=== PATIENT | female | born 1950 | race African-American/Black ===

== ENCOUNTER 2020-04-02 10:27 | Inpatient (IN) | payer MEDICARE, OTHER ==
[~2020-04-02 10:27] MED LIST: ACYCLOVIR400 MG PO; CEFDINIR300 MG PO; NORCO 5-325 TA1 EACH PO; ZPAK PO
[2020-04-02 11:18] LABS: BASOPHIL 0.2 % (0-2); EOSINOPHIL 0 % (0-7); HCT 37.4 % (37.0-47.0); HGB 12.3 g/dl (12.5-16.0); LYMPHOCYTE 8.3 % (15-48); MCHC 32.9 g/dL (32.0-36.0); MCV 94.2 fL (78.0-100.0); MONOCYTE 15.1 % (0-12); NRBC 0; PLT 159 K/uL (150-400); RBC 3.97 M/uL (4.20-5.40); RDW 13.2 % (11.5-14.0); WBC 4.8 K/uL (4.0-10.5)
[2020-04-02 11:28] LABS: INR 1.15 (0.9-1.2)
[2020-04-02 11:29] LABS: D-DIMER 0.42 ug/mLFEU (0.00-0.41)
[2020-04-02 11:34] LABS: BILIRUBIN - TOTAL 0.5 mg/dL (0.2-1.0); BUN/CREAT RATIO (CALC) 17.4 RATIO; CREATININE 1.09 mg/dL (0.51-0.95); GLOBULIN (CALCULATION) 5.2 g/dL; MAGNESIUM 1.9 mg/dL (1.8-2.4); POTASSIUM 3.7 mmol/L (3.5-5.1); TOTAL PROTEIN 8.2 g/dL (6.4-8.2)
[2020-04-02 11:42] LABS: PRO-BNP 42 pg/mL (<125)
[2020-04-02] MEDS ORDERED: FOLIC ACID1 MG PO (14:20)
[2020-04-02 14:51] LABS: BILIRUBIN NEGATIVE (NEGATIVE); BLOOD TRACE-INTACT Ery/uL (NEGATIVE); CLARITY HAZY (CLEAR); COLOR YELLOW (YELLOW); GLUCOSE (U) NORMAL (NORMAL); LEUKOCYTES NEGATIVE Leu/uL (NEGATIVE); NITRITE POSITIVE (NEGATIVE); PROTEIN 2+ mg/dL (NEGATIVE); SPECIFIC GRAVITY >=1.030 (1.001-1.030); pH 5.5 (5.0-9.0)
[2020-04-02 15:05] LABS: BACTERIA 4+; URINARY WBC 20-50
--- NOTE | 2020-04-02 15:41 | NUR ---
S/W PATIENTS DAUGHTER VINNY VIA TELEPHONE, PASSWORD SET UP WITH CONSENT FROM PATIENT, PASSWORD "[phone]"
[2020-04-03 04:34] LABS: BASOPHIL 0 % (0-2); EOSINOPHIL 0 % (0-7); HCT 37.5 % (37.0-47.0); HGB 12.4 g/dl (12.5-16.0); LYMPHOCYTE 8.7 % (15-48); MCH 31.2 pg (25.0-31.0); MCHC 33.1 g/dL (32.0-36.0); MCV 94.5 fL (78.0-100.0); MONOCYTE 11.6 % (0-12); NEUTROPHIL 79.3 % (41-80); NRBC 0; PLT 160 K/uL (150-400); RBC 3.97 M/uL (4.20-5.40); RDW 13.3 % (11.5-14.0); WBC 2.8 K/uL (4.0-10.5)
[2020-04-03 05:24] LABS: ALBUMIN 2.8 g/dL (3.4-5.0); BILIRUBIN - TOTAL 0.4 mg/dL (0.2-1.0); C-REACTIVE PROTEIN 6.6 mg/dL (<=0.90); CREATININE 0.82 mg/dL (0.51-0.95); GLOBULIN (CALCULATION) 5.4 g/dL; POTASSIUM 4.2 mmol/L (3.5-5.1); TOTAL PROTEIN 8.2 g/dL (6.4-8.2)
--- NOTE | 2020-04-03 14:05 | NUR ---
0845: GARY LAZARO NOTIFIED THAT PT O2 SATS HAVE BEEN INTERMITTENTLY DROPPING INTO LOW 80'S, THEN COME BACK UP TO LOW 90'S. RESP RATE HIGH 20'S-HIGH 40'S. DENIES FEELING SOA, BUT APPEARS TACHYPNEIC & SHALLOW BREATHS. DESTINEE IN RESP THERAPY INCREASED HIGH FLOW NASAL CANNULA FLOW TO 39L & STILL ON 100% FIO2. STATES WE WILL CONTINUE TO WATCH PT SINCE NO DESATS ARE CONSECUTIVE & COMES BACK UP TO 90'S. ALL OTHER VSS.
[2020-04-04 05:24] LABS: BASOPHIL 0 % (0-2); EOSINOPHIL 0 % (0-7); HCT 37.6 % (37.0-47.0); HGB 12.5 g/dl (12.5-16.0); LYMPHOCYTE 7.5 % (15-48); MCH 31.3 pg (25.0-31.0); MCHC 33.2 g/dL (32.0-36.0); MCV 94.2 fL (78.0-100.0); MONOCYTE 12.6 % (0-12); MPV 10.1 fL (6.0-9.5); NEUTROPHIL 79.7 % (41-80); NRBC 0; PLT 202 K/uL (150-400); RBC 3.99 M/uL (4.20-5.40); RDW 13.5 % (11.5-14.0); WBC 4.8 K/uL (4.0-10.5)
[2020-04-04 05:42] LABS: ALBUMIN 2.7 g/dL (3.4-5.0); BILIRUBIN - TOTAL 0.3 mg/dL (0.2-1.0); CREATININE 0.76 mg/dL (0.51-0.95); GLOBULIN (CALCULATION) 5.2 g/dL; POTASSIUM 3.9 mmol/L (3.5-5.1); TOTAL PROTEIN 7.9 g/dL (6.4-8.2)
--- NOTE | 2020-04-04 08:57 | NUR ---
PATIENT CONTINOUSLY SATS 80-85% WITH SHORT SHALLOW BREATHS, RR 30'S. WITH CONTINUED COACHING PATIENTS SATS INCREASE TO 91% BUT DOES NOT SUSTAIN. AWARE OF FINDINGS, NO NEW ORDERS AT THIS TIME. CONTINUE TO MONITOR AND NOTIFY IF O2 SATS DROP LESS THAN 80% PER MD. NO ABG ORDERED FOR THIS AM
[2020-04-05 05:11] LABS: BASOPHIL 0.2 % (0-2); EOSINOPHIL 0 % (0-7); HCT 39.1 % (37.0-47.0); HGB 12.7 g/dl (12.5-16.0); LYMPHOCYTE 9.3 % (15-48); MCH 31.1 pg (25.0-31.0); MCHC 32.5 g/dL (32.0-36.0); MCV 95.6 fL (78.0-100.0); MONOCYTE 12.4 % (0-12); MPV 9.6 fL (6.0-9.5); NEUTROPHIL 77.9 % (41-80); NRBC 0; PLT 209 K/uL (150-400); RBC 4.09 M/uL (4.20-5.40); RDW 13.9 % (11.5-14.0); WBC 4.9 K/uL (4.0-10.5)
[2020-04-05 06:02] LABS: ALBUMIN 2.7 g/dL (3.4-5.0); BILIRUBIN - TOTAL 0.5 mg/dL (0.2-1.0); BUN/CREAT RATIO (CALC) 23.9 RATIO; C-REACTIVE PROTEIN 3.9 mg/dL (<=0.90); CREATININE 0.71 mg/dL (0.51-0.95); GLOBULIN (CALCULATION) 5.1 g/dL; POTASSIUM 3.8 mmol/L (3.5-5.1); TOTAL PROTEIN 7.8 g/dL (6.4-8.2)
[2020-04-06 04:24] LABS: BASOPHIL 0 % (0-2); EOSINOPHIL 0 % (0-7); HCT 38.1 % (37.0-47.0); HGB 12.5 g/dl (12.5-16.0); LYMPHOCYTE 6.7 % (15-48); MCH 31.3 pg (25.0-31.0); MCHC 32.8 g/dL (32.0-36.0); MCV 95.3 fL (78.0-100.0); MONOCYTE 7.2 % (0-12); MPV 10.1 fL (6.0-9.5); NEUTROPHIL 85.7 % (41-80); NRBC 0; PLT 219 K/uL (150-400); RDW 13.8 % (11.5-14.0); WBC 5.5 K/uL (4.0-10.5)
[2020-04-06 05:14] LABS: ALBUMIN 2.7 g/dL (3.4-5.0); BILIRUBIN - TOTAL 0.5 mg/dL (0.2-1.0); BUN/CREAT RATIO (CALC) 24.3 RATIO; C-REACTIVE PROTEIN 5.2 mg/dL (<=0.90); CREATININE 0.7 mg/dL (0.51-0.95); POTASSIUM 3.9 mmol/L (3.5-5.1); TOTAL PROTEIN 7.7 g/dL (6.4-8.2)
--- NOTE | 2020-04-07 01:18 | NUR ---
LATE ENTRY 2199 OXYGEN SATURATION MAINTAINING BETWEEN 75-77% ON HIGH FLOW VAPOBREATHER. PT DENIES DYSPNEA OR SOA AT REST. R MAINTAINING BETWEEN 25-35. PT STATES FEELS FINE . SATURATIONS DECREASING LOW 62% WITH ISB OR MOVEMENT IN BED. A [employer] NOTIFIED, ABG ORDERED. 2299 [employer] NOTIFIED THAT O2 STILL MAINTAING AT BETWEEN 76-77% HIGHEST SATURATION IS 84%. PT CONDITION UNCHANGED. ABG REPORTED TO [employer] BY RT. NO NEW ORDERS AT THIS TIME 12 [employer] EVALUATED PT AT BEDSIDE. WRITTEN ORDERS IN CHART. MAINTAIN O2 SAT ABOVE 76%. CURRENT O2 AT THIS TIME 80%.
[2020-04-08 04:10] LABS: BASOPHIL 0 % (0-2); EOSINOPHIL 0 % (0-7); HCT 39.5 % (37.0-47.0); HGB 12.9 g/dl (12.5-16.0); LYMPHOCYTE 4.7 % (15-48); MCH 30.9 pg (25.0-31.0); MCHC 32.7 g/dL (32.0-36.0); MCV 94.5 fL (78.0-100.0); MONOCYTE 10.9 % (0-12); MPV 9.8 fL (6.0-9.5); NEUTROPHIL 83.7 % (41-80); NRBC 0; PLT 260 K/uL (150-400); RBC 4.18 M/uL (4.20-5.40); WBC 5.7 K/uL (4.0-10.5)
[2020-04-08 04:58] LABS: BUN/CREAT RATIO (CALC) 27.6 RATIO; C-REACTIVE PROTEIN 8.5 mg/dL (<=0.90); CREATININE 0.76 mg/dL (0.51-0.95); POTASSIUM 3.7 mmol/L (3.5-5.1)
[2020-04-09 04:19] LABS: BASOPHIL 0.2 % (0-2); EOSINOPHIL 0.2 % (0-7); HCT 41.4 % (37.0-47.0); HGB 13.4 g/dl (12.5-16.0); LYMPHOCYTE 4.7 % (15-48); MCH 30.8 pg (25.0-31.0); MCHC 32.4 g/dL (32.0-36.0); MCV 95.2 fL (78.0-100.0); MONOCYTE 10.6 % (0-12); MPV 9.6 fL (6.0-9.5); NEUTROPHIL 83.4 % (41-80); NRBC 0; PLT 273 K/uL (150-400); RBC 4.35 M/uL (4.20-5.40); WBC 6.4 K/uL (4.0-10.5)
[2020-04-09 04:51] LABS: BUN/CREAT RATIO (CALC) 32.1 RATIO; C-REACTIVE PROTEIN 5.1 mg/dL (<=0.90); CREATININE 0.81 mg/dL (0.51-0.95)
--- NOTE | 2020-04-10 13:45 | NUR ---
1310 PATIENT INTUBATED WITH RN, RT AND CINDY PERSONNEL QUALITY ASSURANCE AUDITOR AT BEDSIDE. CINDY PUSHED SEDATION AND PARALYTIC. PATIENT TOLERATED, PLACED ON VENT WITH AC. ETT 21 AT LIP. 1330- PATIENT BEGAN TO PEAK PRESSURES ON VENT WITH INCREASED RESP RATE. MD AT BEDSIDE, REQUESTED FOR 100MCG PUSH OF FENTANYL AND INCREASE PROPOFOL AND FENT GTT. CINDY OPERATIONS GENERAL AGENT AT BEDSIDE TO PUSH ADDITIONAL PARALYTIC.
--- NOTE | 2020-04-10 14:50 | NUR ---
TOF 4/4 TWITCHES DIALED TO 10. BIS BASELINE 45. PARALYTIC STARTED AT 1MCG/KG/MIN ORDERED BY
--- NOTE | 2020-04-10 16:00 | NUR ---
BIS 34, 0/4 TWITCHES TOF DIALED TO 10.
--- NOTE | 2020-04-10 17:00 | NUR ---
BP 78/61. SEDATION AND ANALGESIA DECREASED PER . PARALYTIC OFF AT THIS TIME. LR BOLUS INITIATED. AT BEDSIDE TO PLACE PARKER AND CENTRAL LINE AT THIS TIME
[2020-04-11 04:54] LABS: BASOPHIL 0 % (0-2); EOSINOPHIL 0.4 % (0-7); HCT 37.3 % (37.0-47.0); HGB 11.7 g/dl (12.5-16.0); LYMPHOCYTE 4.5 % (15-48); MCHC 31.4 g/dL (32.0-36.0); MCV 98.7 fL (78.0-100.0); MONOCYTE 8.3 % (0-12); MPV 9.6 fL (6.0-9.5); NEUTROPHIL 86.3 % (41-80); NRBC 0; PLT 198 K/uL (150-400); RBC 3.78 M/uL (4.20-5.40); WBC 5.5 K/uL (4.0-10.5)
[2020-04-11 05:17] LABS: BUN/CREAT RATIO (CALC) 31.6 RATIO; C-REACTIVE PROTEIN 4.4 mg/dL (<=0.90); CREATININE 0.76 mg/dL (0.51-0.95); POTASSIUM 4.5 mmol/L (3.5-5.1)
--- NOTE | 2020-04-11 10:15 | NUR ---
MANUAL PRONING INTITIATED PER ORDERS, DR COATES CLOSE TO PATIENTS ROOM. CHECK LIST PERFORMED WITH THIS RN AND TRAVIS RN/NURSE HOLISTIC SPECIALIST. ALL LINES SECURES AND PRESSURE POINTS PROTECTED, ALL PRESSURE CAUSING DEVICES REMOVED. PATIENT PRONED WITH 4 RNS, 1 EMS INSTRUCTOR, FORMING PRESS OPERATOR AND RT AT BEDSIDE. POST PRONING SATS 99& BP 130/65, HR 88, RR 22. BIS 53, SEDATION INCREASED, SEE CHARTING. 0/4 TWITCHES ON TRAIN OF FOUR, NO CHANGES IN PARALYTIC GTT RATE AT THIS TIME. PEAK PRESSURE 36. EXPLAINED PROCEDURE TO PATIENT.
--- NOTE | 2020-04-12 02:31 | NUR ---
04/11/2020 2200- PT BEING PREPARED FOR MANUAL SUPINATION. ALL IV POLES/LINES EITHER MOVED TO HEAD OR FOOT OF BED. PARALYTIC AND SEDATION CONTINUES TO INFUSE. BIS MONITOR SHOWS RANGE 40-45. SCD'S, EKG, AND ALL UNNESSARY LINES REMOVED. ER MD OUTSIDE OF ROOM DURING SUPINATION INCASE OF EXTUBATION. RT X2, MARINE ELECTRICIAN APPRENTICE, RN X2, AND TRUCK ENGINE TECHNICIAN IN ROOM. MARINE ELECTRICIAN APPRENTICE TO READ CHECKLIST, ONE RT AT HEAD OF BED. X2 RN, TRUCK ENGINE TECHNICIAN, AND OTHER RT TO TURN PATIENT. ANALYTICAL LAB ANALYST ALSO OUTSIDE OF ROOM OBSERVING. 2215- PT MANUALLY TURNED TO SUPINE AT THIS TIME. TOLERATED WELL. CM SHOWS SR. HR 61. B/P 105/61. 100% O2 SAT. BIS 47. SEDATION STOPPED AFTER SUPINATION PER MD ORDERS. FULL SKIN ASSESSMENT COMPLETED. DRESSINGS REMOVED FROM BOY PROMINENCES. VENT P PRESSURES LOW 40'S. WILL MONITOR PRESSURE INCASE PARALYTIC NEEDED. 2245- VENT P PRESSURE NOTED TO BE 55. ANALYTICAL LAB ANALYST NOTIFIED AND ORDERED TO RESTART PARALYTIC. TOF BASELINE 4/4 TWITCHES ON L RADIAL. WILL CONTINUE TO MONITOR AND TITRATE PARALYTIC.
[2020-04-12 04:41] LABS: BASOPHIL 0 % (0-2); HCT 33.1 % (37.0-47.0); HGB 10.6 g/dl (12.5-16.0); MCH 31.1 pg (25.0-31.0); MCV 97.1 fL (78.0-100.0); MONOCYTE 5.6 % (0-12); MPV 9.3 fL (6.0-9.5); NEUTROPHIL 86.8 % (41-80); NRBC 0; PLT 154 K/uL (150-400); RBC 3.41 M/uL (4.20-5.40); RDW 13.5 % (11.5-14.0); WBC 4.8 K/uL (4.0-10.5)
[2020-04-12 05:00] LABS: BUN/CREAT RATIO (CALC) 24.6 RATIO; CREATININE 0.65 mg/dL (0.51-0.95); POTASSIUM 3.9 mmol/L (3.5-5.1)
--- NOTE | 2020-04-13 01:39 | NUR ---
NOTED FOR 04/12/20, 1624. PATIENT FLIPPED OUT OF PRONE POSTION WITH RT/RN/DR. LIU PRESENT WITHOUT INCIDENT. PATIENT REMAINS SEDATED AND PARALYZED. PATIENT TRACH TIES REMOVED FROM ET TUBE AND PLACED ET TUBE SANDERS ON PATIENT. PATIENT ET/ORAL SUCTIONED WELL AND ORAL CARE DONE BY RT. PATIENT HAS NOTED BRUSING AT BOTH CORNERS OF MOUTH FROM TRACH TIES AND LITLLE BLEEDING FROM RT CORNER OF MOUTH. CONTINUE TO MONITOR PATIENT
--- NOTE | 2020-04-13 13:09 | NUR ---
04/13/1215 MANUAL PRONING INITIATED PER DR. COATES'S ORDERS. CHECK LIST PERFORMED WITH SILVINO Chau RN. PRESSURE POINTS DEVICES REMOVED, LINES SECURED, PRESSURE POINT'S PROTECTED WITH AVEYLN DSG'S. DESTINEE MCKINNEY RT AT HEAD OF BED TO SECURE ET AND NG TUBE. AT CLOSE BY AT DOOR. 4 RN'S AND 1 SHEARING MACHINE TENDER PRESENT TO ASSIST WITH PRONING. POST PRONING V/S BP 105/61 HR 71, 97%,RR 28, BIS 34. TRAIN OF 4 0/4
--- NOTE | 2020-04-13 17:34 | NUR ---
1506 DESTINEE RT CALLED TO BEDSIDE, PT PEAK PRESSURE IN THE 60'S, BP 178/82 INLINE SUCTIONED AND SUCTION MOUTH W/O IMPROVEMENT. RALES AUSCULTATED THROUGHOUT. DESTINEE RT INLINE SUCTIONED PT WELL. DR. COATES ARRIVED TO PT ROOM, NOTIFIED OF ALL CHANGES RALES INCREASE IN PRESSURES, INCREASE TO VECURONIUM,INCREASE FENTANYL TO 100MCG. BIZ 42. TOF 0/4 VERBAL ORDER RECIEVED FROM DR. COATES TO INCREASE VERSED TO 12 . DIURETIC TO BE ORDERED. 1600- PEAK PRESSURES CONTIUE TO STAY IN 50'S AND 60'S. PT ONLY PULLING VOLUMES OF 200-300. DESTINEE MCKINNEY RT AT BEDSIDE. PT MANUALLY BAGGED AND INLINE SUCTIONED. PT PULLING APPROPRIATE VOLUMES. DR. COATES AT BEDSIDE DR. COATES TO SPEAK WITH DR. CARRANZA 6542 POSITION CHANGE WITH DESTINEE MCKINNEY RT.INLINED SUCTIONED A LARGE AMOUNT ON SECREATIONS. PEAK PRESSURES IMPROVED AT 38-40
--- NOTE | 2020-04-14 00:51 | NUR ---
PATIENT MANUALLY PRONED BACK, ORAL CARE AND ET/ORAL SUCTIONING DONE BY THIS RT ET TUBE STAYED SECURE THROUGHOUT
--- NOTE | 2020-04-14 01:39 | NUR ---
LATE ENTRY 0045 RT AT HEAD OF BED, SECOND RT ON RIGHT SIDE OF BED WITH NURSE, 2 NURSES ON INCLUDING THIS NURSE ON LEFT SIDE. 6TH NURSE AT FOOT OF BED. SUPINE CHECKLIST READ ALOUD AND CHECKED OFF. ALL LINES/TUBES SECURED AND WITH SLACK. ELECTRODES REMOVED FROM BACK. HANDS TUCKED UNDER HIPS, TUBE FEED STOPPED AND DISCONNECTED. HEAD TURNED TO RIGHT CHEEK FACING VENT. PT TURNED WITH ER MD AT BEDSIDE. PT TOLERATED WELL, NO SIGNS OF DISTRESS. THIS NURSE AND SECOND RN EVALUATED SKIN. FOAM DRESSINGS REMOVED, ECG APPLIED, TUBE FEED RESTARTED. PT REPOSITIONED IN BED.
[2020-04-14 05:25] LABS: BASOPHIL 0.2 % (0-2); EOSINOPHIL 0.2 % (0-7); HCT 34.9 % (37.0-47.0); HGB 11.1 g/dl (12.5-16.0); LYMPHOCYTE 4.2 % (15-48); MCH 30.3 pg (25.0-31.0); MCHC 31.8 g/dL (32.0-36.0); MCV 95.4 fL (78.0-100.0); MONOCYTE 5.4 % (0-12); MPV 9.9 fL (6.0-9.5); NEUTROPHIL 89.4 % (41-80); NRBC 0; PLT 185 K/uL (150-400); RBC 3.66 M/uL (4.20-5.40); RDW 13.4 % (11.5-14.0); WBC 6.7 K/uL (4.0-10.5)
[2020-04-14 05:48] LABS: ALBUMIN 1.8 g/dL (3.4-5.0); BILIRUBIN - TOTAL 0.4 mg/dL (0.2-1.0); BUN/CREAT RATIO (CALC) 27.6 RATIO; CREATININE 0.58 mg/dL (0.51-0.95); GLOBULIN (CALCULATION) 4.6 g/dL; POTASSIUM 3.6 mmol/L (3.5-5.1); TOTAL PROTEIN 6.4 g/dL (6.4-8.2)
[2020-04-15 06:49] LABS: BUN/CREAT RATIO (CALC) 33.8 RATIO; CREATININE 0.74 mg/dL (0.51-0.95); MAGNESIUM 1.8 mg/dL (1.8-2.4)
[2020-04-15 06:50] LABS: BASOPHIL 0.2 % (0-2); EOSINOPHIL 1.7 % (0-7); HCT 34.4 % (37.0-47.0); HGB 10.5 g/dl (12.5-16.0); LYMPHOCYTE 7.3 % (15-48); MCHC 30.5 g/dL (32.0-36.0); MCV 98.3 fL (78.0-100.0); MONOCYTE 8.3 % (0-12); MPV 9.9 fL (6.0-9.5); NRBC 0; PLT 178 K/uL (150-400); RDW 13.7 % (11.5-14.0)
--- NOTE | 2020-04-15 09:17 | NUR ---
PATIENT DESATED WHEN REPOSITIONED TO RIGHT SIDE, DOWN TO 85%. SUCTIONED TRACY RED FROTHY SPUTUM. TEMP 101.6 RECTALLY. AWARE AND AT BEDSIDE. RETURNED TO BACK. FIO2 INCREASED TO 100%, PEEP INCREASED TO 14, DEEP FRYER ASSEMBLER CONSULTED. RT NOTIFIED OF CHANGES.
[2020-04-15 09:54] LABS: BILIRUBIN NEGATIVE (NEGATIVE); BLOOD TRACE-LYSED Ery/uL (NEGATIVE); CLARITY CLEAR (CLEAR); COLOR YELLOW (YELLOW); GLUCOSE (U) NORMAL (NORMAL); LEUKOCYTES 2+ Leu/uL (NEGATIVE); NITRITE POSITIVE (NEGATIVE); PROTEIN NEGATIVE (NEGATIVE); SPECIFIC GRAVITY <=1.005 (1.001-1.030)
[2020-04-15 10:02] LABS: URINARY WBC RARE
[2020-04-15 10:03] LABS: BACTERIA 1+; SQUAMOUS EPITHELIAL CELLS RARE; URINARY RBC RARE
[2020-04-16 06:07] LABS: BASOPHIL 0.3 % (0-2); EOSINOPHIL 1.4 % (0-7); HCT 31.9 % (37.0-47.0); HGB 9.7 g/dl (12.5-16.0); LYMPHOCYTE 6.7 % (15-48); MCH 30.5 pg (25.0-31.0); MCHC 30.4 g/dL (32.0-36.0); MCV 100.3 fL (78.0-100.0); MONOCYTE 9.5 % (0-12); MPV 9.4 fL (6.0-9.5); NEUTROPHIL 81.7 % (41-80); NRBC 0; PLT 171 K/uL (150-400); RBC 3.18 M/uL (4.20-5.40); RDW 13.9 % (11.5-14.0); WBC 7.7 K/uL (4.0-10.5)
[2020-04-16 06:42] LABS: ALBUMIN 1.7 g/dL (3.4-5.0); BILIRUBIN - TOTAL 0.5 mg/dL (0.2-1.0); CREATININE 0.8 mg/dL (0.51-0.95); GLOBULIN (CALCULATION) 4.4 g/dL; POTASSIUM 3.6 mmol/L (3.5-5.1); TOTAL PROTEIN 6.1 g/dL (6.4-8.2)
[2020-04-16 06:58] LABS: PRO-BNP 39 pg/mL (<125)
[2020-04-17 05:33] LABS: BASOPHIL 0.3 % (0-2); EOSINOPHIL 1.8 % (0-7); HCT 31.4 % (37.0-47.0); HGB 9.3 g/dl (12.5-16.0); LYMPHOCYTE 8.7 % (15-48); MCH 30.7 pg (25.0-31.0); MCHC 29.6 g/dL (32.0-36.0); MCV 103.6 fL (78.0-100.0); MONOCYTE 11.5 % (0-12); MPV 9.9 fL (6.0-9.5); NEUTROPHIL 77.1 % (41-80); NRBC 0; PLT 174 K/uL (150-400); RBC 3.03 M/uL (4.20-5.40); RDW 14.3 % (11.5-14.0); WBC 6.8 K/uL (4.0-10.5)
[2020-04-17 06:30] LABS: BUN/CREAT RATIO (CALC) 22.5 RATIO; C-REACTIVE PROTEIN 17.8 mg/dL (<=0.90); CREATININE 0.8 mg/dL (0.51-0.95); POTASSIUM 4.1 mmol/L (3.5-5.1)
[2020-04-18 03:38] LABS: BASOPHIL 0.2 % (0-2); EOSINOPHIL 1.8 % (0-7); HCT 31.3 % (37.0-47.0); HGB 9.1 g/dl (12.5-16.0); LYMPHOCYTE 9.9 % (15-48); MCH 30.1 pg (25.0-31.0); MCHC 29.1 g/dL (32.0-36.0); MCV 103.6 fL (78.0-100.0); MONOCYTE 12.5 % (0-12); MPV 10.2 fL (6.0-9.5); NEUTROPHIL 75.3 % (41-80); NRBC 0; PLT 167 K/uL (150-400); RBC 3.02 M/uL (4.20-5.40); RDW 14.2 % (11.5-14.0); WBC 6.2 K/uL (4.0-10.5)
[2020-04-18 03:54] LABS: BUN/CREAT RATIO (CALC) 26.8 RATIO; CREATININE 0.82 mg/dL (0.51-0.95); POTASSIUM 4.4 mmol/L (3.5-5.1)
--- NOTE | 2020-04-18 11:30 | NUR ---
CRITICAL ABGS, RT AT BEDSIDE TO ADJUST VENT SETTINGS. PATIENT NOTED TO HAVE A SIGNIFICANT CHANGE IN BLOOD PRESSURE FROM SBP'S IN 160'S TO SBP 90'S. RELAYED ALL INFORMATION TO , ASKED IF HE WOULD LIKE RT TO NOTIFY (BINDING END STITCHER), DENIED AT THIS TIME.
--- NOTE | 2020-04-19 19:50 | NUR ---
PATIENT NEEDED VENT CIRUIT TUBING CHANGED, PATIENT HAS HIGH PIP PRESSURES 45-50s, PATIENT HAD THICK SECRETIONS IN TUBING. HR RUNNNING 88-94, TUBING, HME AND BALALRD CUTION CHANGEDM HR DROPPED TO 60 BUT DID COME BACK UP TO 88. RN NOTIFIED. PATIENT HAS COPOUS AMOUNTS OF TIN CLEAR SECRETIONS. ET TUBE AT 21 @ LIP
--- NOTE | 2020-04-20 01:51 | NUR ---
NOTIFIED VEHICLE COST ENGINEER OF BP 204/87 AT 0130 AFTER 5 MG IV APRESOLINE GIVEN. LOPRESSOR ORDERED 5MG. WILL CONTINUE TO MONITOR.
[2020-04-20 04:29] LABS: BASOPHIL 0.1 % (0-2); EOSINOPHIL 0 % (0-7); HCT 35.5 % (37.0-47.0); HGB 10.6 g/dl (12.5-16.0); LYMPHOCYTE 9.4 % (15-48); MCH 30.5 pg (25.0-31.0); MCHC 29.9 g/dL (32.0-36.0); MONOCYTE 11.6 % (0-12); MPV 9.8 fL (6.0-9.5); NEUTROPHIL 78.5 % (41-80); NRBC 0; PLT 253 K/uL (150-400); RBC 3.48 M/uL (4.20-5.40); RDW 13.8 % (11.5-14.0); WBC 6.9 K/uL (4.0-10.5)
[2020-04-20 04:45] LABS: ALBUMIN 2.3 g/dL (3.4-5.0); BILIRUBIN - TOTAL 0.2 mg/dL (0.2-1.0); BUN/CREAT RATIO (CALC) 60.7 RATIO; C-REACTIVE PROTEIN 4.8 mg/dL (<=0.90); CREATININE 0.61 mg/dL (0.51-0.95); GLOBULIN (CALCULATION) 5.7 g/dL; POTASSIUM 4.9 mmol/L (3.5-5.1)
[2020-04-20 04:54] LABS: MAGNESIUM 2.5 mg/dL (1.8-2.4)
[2020-04-21 05:12] LABS: BASOPHIL 0.3 % (0-2); EOSINOPHIL 0.3 % (0-7); HCT 35.6 % (37.0-47.0); HGB 10.5 g/dl (12.5-16.0); LYMPHOCYTE 9.1 % (15-48); MCH 30.2 pg (25.0-31.0); MCHC 29.5 g/dL (32.0-36.0); MCV 102.3 fL (78.0-100.0); MONOCYTE 12.8 % (0-12); MPV 9.9 fL (6.0-9.5); NEUTROPHIL 76.9 % (41-80); NRBC 0; PLT 280 K/uL (150-400); RBC 3.48 M/uL (4.20-5.40); RDW 13.9 % (11.5-14.0)
[2020-04-21 05:40] LABS: BUN/CREAT RATIO (CALC) 70.5 RATIO; CREATININE 0.61 mg/dL (0.51-0.95); POTASSIUM 4.7 mmol/L (3.5-5.1)
[2020-04-22 10:27] LABS: HCT 35.2 % (37.0-47.0); HGB 10.6 g/dl (12.5-16.0); MCH 30.6 pg (25.0-31.0); MCHC 30.1 g/dL (32.0-36.0); MCV 101.7 fL (78.0-100.0); MPV 10.5 fL (6.0-9.5); RBC 3.46 M/uL (4.20-5.40); RDW 14.1 % (11.5-14.0)
[2020-04-22 10:42] LABS: BUN/CREAT RATIO (CALC) 84.1 RATIO; CREATININE 0.63 mg/dL (0.51-0.95); POTASSIUM 4.8 mmol/L (3.5-5.1)
[2020-04-23 05:44] LABS: BASOPHIL 0.2 % (0-2); EOSINOPHIL 1.1 % (0-7); HCT 38.8 % (37.0-47.0); HGB 11.5 g/dl (12.5-16.0); LYMPHOCYTE 12.4 % (15-48); MCH 30.5 pg (25.0-31.0); MCHC 29.6 g/dL (32.0-36.0); MCV 102.9 fL (78.0-100.0); MONOCYTE 14.6 % (0-12); MPV 10.2 fL (6.0-9.5); NEUTROPHIL 70.6 % (41-80); NRBC 0.2; PLT 382 K/uL (150-400); RBC 3.77 M/uL (4.20-5.40); RDW 14.1 % (11.5-14.0); WBC 8.4 K/uL (4.0-10.5)
[2020-04-23 06:04] LABS: BUN/CREAT RATIO (CALC) 82.5 RATIO; CREATININE 0.57 mg/dL (0.51-0.95); MAGNESIUM 2.8 mg/dL (1.8-2.4); POTASSIUM 4.8 mmol/L (3.5-5.1)
--- NOTE | 2020-04-23 06:49 | NUR ---
PULLED A LINE AT 2009 PER AERODYNAMICIST ORDERS. A LINE NOT PROVIDING WAVEFORM, ABP IS NOT ACCURATE WITH REGULAR BP, NO BLOOD RETURN FROM PT. PORT. CALL CENTER DIRECTOR VERIFIED. ER,RN
--- NOTE | 2020-04-24 02:13 | NUR ---
PT. STARTED ON PRESEDEX AROUND 1700 ON 04/23/20. STARTED AT 0.2MCG/KG/HR. AT 2247 WAS TITRATED TO 0.4MCG/KG/HR PER HOSPITALIST ORDER. AT 0057 ON 04/24/20 WAS TITRATED TO 0.5MCG/KG/HR/10.2ML/HR.
--- NOTE | 2020-04-24 14:00 | NUR ---
PRECEDEX/SEDATION TITRATION: 1045: PRECEDEX DECREASED FROM 0.5 MCG/KG/HR TO 0.4 MCG/KG/HR = 8.1 ML/HR SINCE BP RUNNING LOW & MODERATE TO DEEP SEDATION AT THIS TIME. 1220: INCREASED PRECEDEX TO 0.5 MCG/KG/HR = 10.2 ML/HR PT MOVING HEAD & MOUTH, TACHYPNEA, BP ELEVATED 170-180'S/80-90'S. 1310: INCREASED PRECEDEX TO 0.6 MCG/KG/HR = 12.2 ML/HR FOR SAME ABOVE. 1325: INCREASED PRECEDEX TO 0.7 MCG/KG/HR = 14.2 ML/HR FOR BP STILL ELEVATED, MOVING HEAD SIDE TO SIDE & MOUTH/GAGGING ON ETT, TACHYPNEA. SEE FENTANYL TITRATION FOR ALSO ELEVATED. VERSED GTT RUNNING AT 10 MG/HR = 10 ML/HR ALSO. AFTER SEDATION INCREASE PT LYING STILL/CALM IN BED, BP DOWN TO 140'S/80'S RR BACK TO VENT RATE OF 28, ALL OTHER VSS. WILL CONTINUE TO MONITOR CLOSELY.
--- NOTE | 2020-04-24 15:03 | NUR ---
VENT SETTINGS: DR. COATES SPOKE W/ ADMISSIONS MANAGER RN DR. BERMAN & MD TURNED TV TO 570, PEEP UP TO 12, & TURNED FIO2 DOWN TO 90%.
--- NOTE | 2020-04-24 17:14 | NUR ---
PRECEDEX DECREASED TO 0.6 MCG/KG/HR = 12.2 ML/HR AT THIS TIME FOR MODERATE TO DEEP SEDATION & BP SLIGHTLY LOW 90'S/50'S, MAP STAYING >65.
--- NOTE | 2020-04-24 18:51 | NUR ---
PRECEDEX TURNED DOWN TO 0.5 MCG/KG/HR = 10.2 ML/HR AT THIS TIME DUE TO MODERATE TO DEEP SEDATION, BP 90'S/50'S.
[2020-04-25 05:42] LABS: BASOPHIL 0.2 % (0-2); EOSINOPHIL 2.6 % (0-7); HCT 32.7 % (37.0-47.0); HGB 9.5 g/dl (12.5-16.0); LYMPHOCYTE 16.2 % (15-48); MCH 30.3 pg (25.0-31.0); MCHC 29.1 g/dL (32.0-36.0); MCV 104.1 fL (78.0-100.0); MONOCYTE 10.6 % (0-12); MPV 10.4 fL (6.0-9.5); NRBC 0.3; PLT 303 K/uL (150-400); RBC 3.14 M/uL (4.20-5.40); RDW 14.2 % (11.5-14.0); WBC 6.3 K/uL (4.0-10.5)
[2020-04-25 06:24] LABS: ALBUMIN 2.3 g/dL (3.4-5.0); BILIRUBIN - TOTAL 0.3 mg/dL (0.2-1.0); BUN/CREAT RATIO (CALC) 82.7 RATIO; C-REACTIVE PROTEIN 2.8 mg/dL (<=0.90); CREATININE 0.52 mg/dL (0.51-0.95); GLOBULIN (CALCULATION) 4.5 g/dL; POTASSIUM 4.5 mmol/L (3.5-5.1); TOTAL PROTEIN 6.8 g/dL (6.4-8.2)
[2020-04-26 09:26] LABS: BUN/CREAT RATIO (CALC) 67.3 RATIO; CREATININE 0.49 mg/dL (0.51-0.95)
[2020-04-27 04:54] LABS: BUN/CREAT RATIO (CALC) 67.5 RATIO; CREATININE 0.4 mg/dL (0.51-0.95); POTASSIUM 4.8 mmol/L (3.5-5.1)
[2020-04-28 04:27] LABS: BASOPHIL 0.1 % (0-2); EOSINOPHIL 1.9 % (0-7); HCT 29.9 % (37.0-47.0); HGB 8.8 g/dl (12.5-16.0); LYMPHOCYTE 10.9 % (15-48); MCH 29.5 pg (25.0-31.0); MCHC 29.4 g/dL (32.0-36.0); MCV 100.3 fL (78.0-100.0); MPV 10.1 fL (6.0-9.5); NRBC 0.3; PLT 316 K/uL (150-400); RBC 2.98 M/uL (4.20-5.40); RDW 13.8 % (11.5-14.0); WBC 6.7 K/uL (4.0-10.5)
[2020-04-28 04:43] LABS: BUN/CREAT RATIO (CALC) 57.1 RATIO; C-REACTIVE PROTEIN 3.9 mg/dL (<=0.90); CREATININE 0.35 mg/dL (0.51-0.95); POTASSIUM 4.7 mmol/L (3.5-5.1)
[2020-04-29 04:59] LABS: BUN/CREAT RATIO (CALC) 52.6 RATIO; CREATININE 0.38 mg/dL (0.51-0.95); POTASSIUM 4.7 mmol/L (3.5-5.1)
[2020-04-30 04:28] LABS: BASOPHIL 0.3 % (0-2); EOSINOPHIL 0.6 % (0-7); HCT 30.5 % (37.0-47.0); LYMPHOCYTE 10.9 % (15-48); MCH 30.1 pg (25.0-31.0); MCHC 29.5 g/dL (32.0-36.0); MONOCYTE 11.5 % (0-12); MPV 10.3 fL (6.0-9.5); NEUTROPHIL 74.4 % (41-80); NRBC 1.8; PLT 389 K/uL (150-400); RBC 2.99 M/uL (4.20-5.40); RDW 14.5 % (11.5-14.0); WBC 7.9 K/uL (4.0-10.5)
[2020-04-30 04:45] LABS: BUN/CREAT RATIO (CALC) 64.7 RATIO; CREATININE 0.34 mg/dL (0.51-0.95); POTASSIUM 4.7 mmol/L (3.5-5.1)
[2020-05-01 04:57] LABS: BASOPHIL 0.3 % (0-2); EOSINOPHIL 0.9 % (0-7); HCT 30.2 % (37.0-47.0); HGB 8.8 g/dl (12.5-16.0); LYMPHOCYTE 13.4 % (15-48); MCH 29.7 pg (25.0-31.0); MCHC 29.1 g/dL (32.0-36.0); MONOCYTE 11.2 % (0-12); MPV 10.1 fL (6.0-9.5); NEUTROPHIL 71.9 % (41-80); NRBC 2.7; PLT 395 K/uL (150-400); RBC 2.96 M/uL (4.20-5.40); RDW 14.8 % (11.5-14.0); WBC 8.9 K/uL (4.0-10.5)
[2020-05-01 05:18] LABS: ALBUMIN 2.1 g/dL (3.4-5.0); BILIRUBIN - TOTAL 0.3 mg/dL (0.2-1.0); BUN/CREAT RATIO (CALC) 55.3 RATIO; CREATININE 0.38 mg/dL (0.51-0.95); GLOBULIN (CALCULATION) 4.4 g/dL; POTASSIUM 4.6 mmol/L (3.5-5.1); TOTAL PROTEIN 6.5 g/dL (6.4-8.2)
--- NOTE | 2020-05-01 17:43 | NUR ---
VENTILATOR ALARM NOTE: AFTER TURNING/REPOSITION PT & COMPLETING 1600 ASSESSMENT, O2 SATS 94-96%, ALL VSS, NO DISTRESS NOTED. BRIEFLY AFTER EXITING ROOM VENTILATOR BEGAN TO ALARM WITH HIGH PEAK PRESSURES >60, HAD BEEN 40'S MOST OF THE DAY PRIOR. RESP THERAPIST & THIS RN AT BEDSIDE, O2 SATS REMAINED 95% OR >, ALL OTHER VSS, RR 28 PER VENT SETTINGS. RESP THERAPIST DESTINEE MCKINNEY SUCTIONED MUCOUS PLUG WITH IN-LINE SUCTION, HR DROPPED TO 30, THEN IMMEDIATELY RETURNED TO 70'S ONCE SUCTION COMPLETE. ALL VITALS STABLE. INHALERS GIVEN PER RESP THERAPY. DR. VEGA NOTIFIED, ALSO NOTIFIED OF ETT 20 CM AT LIP ALL THIS SHIFT. CLOUD AUTOMATION TESTER REPORTED BETWEEN 20-21 AT LIP & THIS DOCUMENTED 21 AT LIP YESTERDAY. LUNG SOUNDS NOTED TO BE EQUAL THROUGHOUT PER THIS RN & RESP THERAPIST. SUCTIONED PERFORMED ONCE MORE PEAK PRESSURE RETURNED TO 50'S. ALL VITALS REMAINED STABLE WITH THIS SUCTION. PEAK PRESSURE DROPPED TO HIGH 40'S BRIEFLY THEN RETURNED TO MID-HIGH 50'S. CXR ORDRED PER DR. VEGA. WILL MONITOR CLOSELY.
--- NOTE | 2020-05-01 19:51 | NUR ---
RT AT BEDSIDE, PATIENT HAD AUDIBLE SECRETIONS IN ET TUBE, THIN GOLDEN SECRETIONS SUCTIONED FROM ET TUBE. PEAK PRESSURES AROUND 55. UPON SUCTIONING PATIENT HAD INCREASED PEAK PRESSURES TO 60, HR DROPPED TO 37 SAT 90%. RN ARRIVING AT BEDSIDE, AT DESK. AMBU BAG WITH FILTER READY AT THE BED IF NEEDED. HR IMPROVED TO 88. PEAK PRESSURES MAINTAINING AT 56-58. SAT 95%. RN ADJUSTING MEDICATIONS. CONTINUE TO MONITOR
--- NOTE | 2020-05-01 21:28 | NUR ---
BACK CHARTING DUE TO RT WORKLOAD. RT SPOKE WITH DR. FLORENCE VIA TIGER TEXT 2022 PATIENT REMAINED AT PEAK PRESSURES >60 WELL AFTER INITIAL NOTE MADE PATIENT DID NOT NEED SUCTIONED PER AUSCULTATION, RT ADJUSTED FLOW AND SENSITIVITY AND UNABLE TO GET PATIENT TO VENTILATE WELL WITH LOW PEAK PRESSURES. CUFF PRESSURE CHECKED, ANNA LOMAS AT BEDSIDE MAINTAINING DRIPS. INIATED TRIAL PC MODE AND PATIENT WOULD NOT VENTILATE. RT ADJUST VT TO 550 AND PEAK PRESSURES HAVE IMPROVED SINCE MAINTAINING AROUND 48-50. DR. FLORENCE PAPER TESTING SUPERVISOR WAS NOTIFIED. OK WITH CHANGES MADE BY THIS RT AND OBTAIN ABG. ABG NOTED MORE ACIDOTIC THAN THIS AM, BUT PO2 HAD IMPROVED FROM [address] FLORENCE NOTIFIED. VT NOT ADJUSTED AT THIS TIME TO MAINTAIN LOWER PEAK PRESSURES TO NOT FURTHER INDUCE LUNG INJURY. RR INCREASED TO 30, VT TO REMAIN AT 550 AND FIO2 DECREAED TO 60% FROM 80% SAT CURRENTLY 94%, REPEAT ABG IN 30 MINUTES. FLOW SET AT 70 WAS ADJUSTED FROM 76 PRIOR. SPOKE WITH VIA TELEPHONE AT AROUND 2124. CONTINUE TO MONITOR PATIENT HAS CLEAR BREATH SOUNDS IN UPPER LOBES, DIMINISHED IN BASES
--- NOTE | 2020-05-01 22:54 | NUR ---
DR. FERRERA CONSULTED PER THERAPIST FOR RECOMENDATION TEXT SENT 1901
--- NOTE | 2020-05-01 22:56 | NUR ---
ABG IMPROVED WITH VENT CHANGES VT 550/RR30/60%/+12 FROM PRIOR ABG AT 2100, PATIENT HAS MAINTAINED LOWER IMPROVED PEAK PRESSURES 46/47. ABG 7.29/69.8 CO2/64.4/P02/ SAT 87.8%, MONITOR SAT 91% VT INCREASED TO 580, FIO2 65%, DR. FLORENCE AWARE. PEAK PRESSURES AT 50 THIS RT WANTS TO MAINTAIN LOWER PEAK PRESSURES <55 TO PROTECT FROM LUNG INJURY AND PNEUMOTHORAX. DR. FERRERA ALSO CONTACTED FOR SECOND OPINION CONSULT TOLD BY RN MAISHA LAZARO CONTACTED BEFORE ON PATIENT. CONTINUE TO MONITOR AT THIS TIME
--- NOTE | 2020-05-02 02:38 | NUR ---
PATIENT VENT ALARM STARTED ALARMING AROUND 0200 WITH PEAK PRESSURES AT 60. UPON AUSCULATATION PATIENT DOES NOT SOUND WET, RHONCI, ETC. PATIENT IS FULLY SEDATED AND ON PARALYTIC. RN ABEBE AT BEDSIDE. PATIENT TAKEN OFF VENT AND BAGGED BY RT IN CASE OF MUCUS PLUGGING. PATIENT WAS NOT HARD TO BAG, DID NOT HEAR ANY SECRETIONS IN TUBE AND HR MAINTAINED AROUND 60. PATIENT CONNECTED BACK TO VENT AND CONTINUED TO PEAK PRESSURE. PATIENT SUCTIONED X2 AND PATIENT NENO TO 30s ON SECOND ATTEMPT. RN AT BEDSIDE. PATIENT HR DID IMPROVE. AND NOW BACK UP TO 66. RT HAS NEVER HEARD BACK FROM DR. SETH. ANOTHER TEXT PER NUMBER IN RT DEPARTMENT FOR SUGGESTIONS FROM PULMONOLGIST. RT TRIED PATIENT ON PRESSURE CONTROL WITHOUT ANY SUCCESS OF VENTILATING PATIENT. PATIENT REMAINS ON VENT VT 580/RR 30/65%/+12, PEAK PRESSURE 58 HR 65 SAT 93% PER MONITOR.
--- NOTE | 2020-05-02 06:57 | NUR ---
SPOKE WITH DR. FERRERA REGUARDING PATIENT AT 0623 EXPLAINED PATIENT STATUS THROUGHOUT THE EVENING. ABG BETTER THIS AM. PH 7.464/ CO2 50.1/ PO2 48.6/ HCO3 36.0/ 86.6% DR. FERRERA OK WITH CHANGES, INCREASE FIO2 75%
[2020-05-02 07:55] LABS: BASOPHIL 0.1 % (0-2); EOSINOPHIL 1.2 % (0-7); HCT 30.6 % (37.0-47.0); LYMPHOCYTE 13.6 % (15-48); MCH 29.8 pg (25.0-31.0); MCHC 29.4 g/dL (32.0-36.0); MCV 101.3 fL (78.0-100.0); MONOCYTE 11.7 % (0-12); MPV 9.3 fL (6.0-9.5); NEUTROPHIL 71.5 % (41-80); NRBC 1.2; PLT 363 K/uL (150-400); RBC 3.02 M/uL (4.20-5.40); RDW 15.4 % (11.5-14.0); WBC 9.2 K/uL (4.0-10.5)
[2020-05-02 08:15] LABS: BUN/CREAT RATIO (CALC) 54.8 RATIO; CREATININE 0.31 mg/dL (0.51-0.95)
--- NOTE | 2020-05-02 12:25 | NUR ---
1100 AT BEDSIDE WITH EVELIN FORREST LANEA RN AT BEDSIDE TO PLACE TRACH. PROCEDURE WENT WELL.
[2020-05-03 05:00] LABS: BASOPHIL 0.1 % (0-2); EOSINOPHIL 1.3 % (0-7); HCT 30.8 % (37.0-47.0); HGB 9.2 g/dl (12.5-16.0); LYMPHOCYTE 16.1 % (15-48); MCH 30.3 pg (25.0-31.0); MCHC 29.9 g/dL (32.0-36.0); MCV 101.3 fL (78.0-100.0); MONOCYTE 13.5 % (0-12); MPV 9.3 fL (6.0-9.5); NEUTROPHIL 67.9 % (41-80); PLT 328 K/uL (150-400); RBC 3.04 M/uL (4.20-5.40); RDW 15.9 % (11.5-14.0); WBC 7.2 K/uL (4.0-10.5)
[2020-05-03 05:17] LABS: BUN/CREAT RATIO (CALC) 60.6 RATIO; CREATININE 0.33 mg/dL (0.51-0.95)
--- NOTE | 2020-05-03 11:30 | NUR ---
O2 SATS DOWN TO 88-89%, BP ELEVATED 180'S SYSTOLIC, ALL OTHER VSS. BIS 38, TOF 2/4. THIS RN & RESP THERAPY IN-LINE SUCTIONED TRACH & GOT MODERATE AMOUNT CLEAR/GOLDEN/BLOODY SPUTUM. PEAK PRESSURE HIGH 40'S ON VENT. DR. VEGA NOTIFIED/AWARE. AFTER SUCTIONED/REPOSITIONED SATS REMAIN LOW AT 86%. MD ORDERED TO INCREASE FIO2 TO 80% SATS INCREASED TO 95-97%. TOLERATING VENT WELL AT THIS TIME. MD STATES SOMEWHAT BLOODY SPUTUM IS TO BE EXPECTED WITH FRESH TRACH. WILL CONT. TO MONITOR CLOSELY.
--- NOTE | 2020-05-03 19:39 | NUR ---
PATIENT HAS #8 MATHEW DE JESUS #8 TRACH AT BEDSIDE OBTURATOR NOT FOUND AT BEDSIDE, ASKED RN ABOUT AMBU BAG AT BEDSIDE CONTINUE TO MONITOR
[2020-05-04 04:13] LABS: BASOPHIL 0.1 % (0-2); EOSINOPHIL 1.3 % (0-7); HGB 9.4 g/dl (12.5-16.0); LYMPHOCYTE 12.7 % (15-48); MCH 30.1 pg (25.0-31.0); MCHC 29.4 g/dL (32.0-36.0); MCV 102.6 fL (78.0-100.0); MONOCYTE 11.4 % (0-12); MPV 9.8 fL (6.0-9.5); NEUTROPHIL 73.8 % (41-80); NRBC 0; PLT 357 K/uL (150-400); RBC 3.12 M/uL (4.20-5.40); RDW 15.9 % (11.5-14.0); WBC 6.9 K/uL (4.0-10.5)
[2020-05-04 04:38] LABS: BUN/CREAT RATIO (CALC) 72.4 RATIO; CREATININE 0.29 mg/dL (0.51-0.95); POTASSIUM 4.3 mmol/L (3.5-5.1)
[2020-05-05 04:01] LABS: BASOPHIL 0 % (0-2); EOSINOPHIL 1.8 % (0-7); HCT 32.2 % (37.0-47.0); HGB 9.3 g/dl (12.5-16.0); LYMPHOCYTE 13.4 % (15-48); MCH 29.8 pg (25.0-31.0); MCHC 28.9 g/dL (32.0-36.0); MCV 103.2 fL (78.0-100.0); MONOCYTE 13.9 % (0-12); MPV 9.4 fL (6.0-9.5); NEUTROPHIL 70.4 % (41-80); NRBC 0.3; PLT 317 K/uL (150-400); RBC 3.12 M/uL (4.20-5.40); RDW 15.8 % (11.5-14.0); WBC 7.7 K/uL (4.0-10.5)
[2020-05-05 04:15] LABS: BUN/CREAT RATIO (CALC) 73.3 RATIO; CREATININE 0.3 mg/dL (0.51-0.95); POTASSIUM 4.1 mmol/L (3.5-5.1)
[2020-05-06 04:35] LABS: BASOPHIL 0.1 % (0-2); EOSINOPHIL 1.5 % (0-7); HCT 32.7 % (37.0-47.0); HGB 9.5 g/dl (12.5-16.0); LYMPHOCYTE 13.5 % (15-48); MCH 29.4 pg (25.0-31.0); MCHC 29.1 g/dL (32.0-36.0); MCV 101.2 fL (78.0-100.0); MPV 9.9 fL (6.0-9.5); NEUTROPHIL 71.4 % (41-80); NRBC 0; PLT 312 K/uL (150-400); RBC 3.23 M/uL (4.20-5.40); RDW 15.7 % (11.5-14.0); WBC 7.3 K/uL (4.0-10.5)
[2020-05-06 05:31] LABS: BUN/CREAT RATIO (CALC) 86.2 RATIO; CREATININE 0.29 mg/dL (0.51-0.95); POTASSIUM 3.8 mmol/L (3.5-5.1)
[2020-05-07 05:46] LABS: BASOPHIL 0.1 % (0-2); EOSINOPHIL 1.7 % (0-7); HCT 32.3 % (37.0-47.0); HGB 9.5 g/dl (12.5-16.0); LYMPHOCYTE 11.3 % (15-48); MCH 29.8 pg (25.0-31.0); MCHC 29.4 g/dL (32.0-36.0); MCV 101.3 fL (78.0-100.0); MONOCYTE 11.1 % (0-12); MPV 9.8 fL (6.0-9.5); NEUTROPHIL 75.5 % (41-80); NRBC 0; PLT 284 K/uL (150-400); RBC 3.19 M/uL (4.20-5.40); RDW 15.6 % (11.5-14.0); WBC 9.4 K/uL (4.0-10.5)
[2020-05-07 05:54] LABS: ALBUMIN 2.4 g/dL (3.4-5.0); BILIRUBIN - TOTAL 0.4 mg/dL (0.2-1.0); BUN/CREAT RATIO (CALC) 90.6 RATIO; CREATININE 0.32 mg/dL (0.51-0.95); GLOBULIN (CALCULATION) 4.5 g/dL; POTASSIUM 3.4 mmol/L (3.5-5.1); TOTAL PROTEIN 6.9 g/dL (6.4-8.2)
--- NOTE | 2020-05-07 06:05 | NUR ---
PT. REPOSITIONED Q2HR FROM LEFT TO BACK. PT. UNABLE TO TOLERATE BEING ON THE RIGHT SIDE DURING DAY SHIFT. PT. WAS SOMETIMES LEFT ON SAME SIDE BUT WAS REPOSITIONED IN BED AND WEIGHT WAS DISPERSED, JUST DEPENDED ON HER TOLERATION BASED ON VITAL SIGNS AND VENT TOLERATION.
--- NOTE | 2020-05-07 17:04 | NUR ---
LATE ENTRY 05/04/2020 REFERRAL SENT TO TARIK AT [facility] [phone] EXT. [phone].
--- NOTE | 2020-05-08 10:39 | NUR ---
FAXED UPDATED INFORMATION TO TARIK AT CONTINU[facility] AT [facility].
[2020-05-09 08:56] LABS: BASOPHIL 0.2 % (0-2); EOSINOPHIL 2.9 % (0-7); HCT 31.7 % (37.0-47.0); HGB 9.1 g/dl (12.5-16.0); LYMPHOCYTE 11.9 % (15-48); MCH 29.4 pg (25.0-31.0); MCHC 28.7 g/dL (32.0-36.0); MCV 102.3 fL (78.0-100.0); MONOCYTE 10.7 % (0-12); MPV 9.8 fL (6.0-9.5); NEUTROPHIL 73.9 % (41-80); NRBC 0; PLT 250 K/uL (150-400); RDW 15.9 % (11.5-14.0); WBC 8.2 K/uL (4.0-10.5)
[2020-05-09 09:11] LABS: BUN/CREAT RATIO (CALC) 85.3 RATIO; C-REACTIVE PROTEIN 5.2 mg/dL (<=0.90); CREATININE 0.34 mg/dL (0.51-0.95); POTASSIUM 3.1 mmol/L (3.5-5.1)
--- NOTE | 2020-05-09 19:18 | NUR ---
1740- PT WAS PREPARED FOR PRONING WITH HEAD TO TOE ASSESSMENT WITH ALY RN. PARALYTIC NOT ORDERED. FENTANYL AT 275MCG, VERSED 18ML INFUSING. FOAM DRESSING APPLIED DIRECTED BY PROTOCOL CHECKLIST. ALL LINES SECURED. LEAH RT AT HEAD OF BED WITH BE LU MARY JO, CHRISTY RT AT BEDSIDE. PT UNABLE TO TOLERATE INITIAL TURN. VECURINIUM PUSH GIVEN ORDERED, FENTANYL INCREASED TO 300MCG, VERSED INCREASED TO 20ML. PT BIZ AT 40 , ABLE TO PRONE PT W/O DIFFICULTY.
[2020-05-10 04:33] LABS: CREATININE 0.3 mg/dL (0.51-0.95); POTASSIUM 3.7 mmol/L (3.5-5.1)
--- NOTE | 2020-05-10 12:20 | NUR ---
PT RETURNED TO SUPINE POSITION PER DR. COATES ORDER AFTER 18 HOURS IN PRONE POSITION. RESP THERAPIST, 5 RNS INCLUDING HARNESSMAKER APPRENTICE PRESENT IN ROOM. DR. PRATT PRESENT OUTSIDE ROOM. SKIN ASSESSMENT PERFORMED ON POSTERIOR/ANTERIOR BODY W/ ALL INTACT. FOLLOWED PROTOCOL CHECKLIST FOR PLACING BACK IN SUPINE POSITION. PT TOLERATED WELL. ALL SUPPORT LINES SECURED, NO COMPLICATIONS.
--- NOTE | 2020-05-10 13:37 | NUR ---
05/10/20 Dr. Gomez reports, Dr. Pompa will accept Ms. Miranda at [facility]. Per Dr. Gomez's request, Barbra Altman, digital content coordinator was contacted ([phone]). Ms. Altman reports: [facility] and [facility] have waiting list and [facility] is not accepting COVID patients. Ms. Altman was requested to speak with Dr. Pompa. She said she would have the CREW PERSON to call Dr. Pompa. A report was given to BRITANY and Dr. Gomez.
--- NOTE | 2020-05-10 15:00 | NUR ---
RIJ CENTRAL LINE REMOVED PER SHILO CISSEL, PRESSURE HELD, GAUZE DRSG APPLIED. TIP INTACT. SHILO RN ALSO PLACED PERIPHERAL IV #20 RFA IN PREPARATION FOR PICC LINE PLACEMENT. SEE PICC NOTE.
--- NOTE | 2020-05-10 17:15 | NUR ---
PICC LINE CONSULT PLACED. MYSELF AND SHERRELL SPENCER RN WENT TO ROOM TO START PICC LINE. USING ULTRASOUND I VISUALIZED THE RIGHT UPPER BASILIC VEIN. USING STERILE PROCEDURE, I CLEANED THE AREA AND PREPPED FOR PICC LINE INSERTION. USING ULTRASOUND I THEN VISUALIZED THE VEIN AND CHOSE THE BEST INSERTION SITE. I NUMBED THE AREA WITH 1ML OF SQ LIDOCAINE. I THEN INSERTED THE 21G NEEDLE, ONCE BLOOD RETURN WAS PRESENT, I ADVANCED THE GUIDE WIRE THROUGH THE NEEDLE OPENING. I REMOVED THE TOURNIQUET AND THEN RETRACTED THE NEEDLE ONCE THE GUIDEWIRE WAS ADVANCED FAR ENOUGH. I THEN ADVANCED THE INTRODUCER OVER THE GUIDE WIRE AND THROUGH THE SKIN, ONCE ADVANCED TO THE HUB, I REMOVED THE GUIDE WIRE COMPLETLEY. I PLACED A STERILE CAP ON THE END OF THE INTRODCUER HUB. I THEN TRIMMED THE PICC LINE TO PRE-MEASURMENT OF 42CM. I REMOVED THE INTERNAL INTRODUCER AND GUIDED THE PICC LINE THROUGH THE INTRODUCER OPEING. I VISUALIZED THE PICC LINE "DROP" DOWN TOWARDS THE SVC USING THE SITE RITE CHEST DEVICE. I THEN REMOVED THE EXTERNAL INTRODUCER USING THE BREAKAWAY METHOD. BOTH LUMENS OF PICC NOTED TO HAVE BLOOD RETURN AND FLUSHED WITH EASE. I SECURED THE PICC WITH A STAT LOCK AND STERILE DRESSING. CALLED FOR STAT CXR. DR COATES VEIWED XRAY, SAID TO PULL BACK 4 CM. ANOTHER CXR TAKEN TO CONFIRM PLACEMENT, RADIOLOGY REPORTED PICC LINE OVER SVC. INTERNAL WIRE REMOVED, BOTH LUMENS STILL NOTED WITH BLOOD RETURN AND FLUSHED EACH WITH 10ML NS W/O ANY DIFFICULTY. GATO RN, PATIENTS PRIMARY RN NOTIFIED OF PICC PLACEMENT AND READY FOR USE. PICC LINE OUT 7CM AT INSERTION SITE.
[2020-05-11 05:31] LABS: BASOPHIL 0.1 % (0-2); EOSINOPHIL 2.6 % (0-7); HCT 31.1 % (37.0-47.0); HGB 8.9 g/dl (12.5-16.0); LYMPHOCYTE 12.5 % (15-48); MCHC 28.6 g/dL (32.0-36.0); MCV 101.3 fL (78.0-100.0); MONOCYTE 10.6 % (0-12); MPV 9.8 fL (6.0-9.5); NEUTROPHIL 73.9 % (41-80); NRBC 0; PLT 254 K/uL (150-400); RBC 3.07 M/uL (4.20-5.40); RDW 15.7 % (11.5-14.0); WBC 7.9 K/uL (4.0-10.5)
[2020-05-11 05:50] LABS: BUN/CREAT RATIO (CALC) 77.1 RATIO; C-REACTIVE PROTEIN 9.1 mg/dL (<=0.90); CREATININE 0.35 mg/dL (0.51-0.95); POTASSIUM 3.3 mmol/L (3.5-5.1)
--- NOTE | 2020-05-12 00:18 | NUR ---
PATIENT HAS HAD SLIGHT INCREASE IN PEAK PRESSURES THE PAST HOUR. RN ADJUSTED PAIN MEDICATION DRIP. PATIENT HAS SOME AUTO TRIGGERING OF BREATHS AND INDEPENDENT COUGH AT TIMES. PATIENT SUCTIONED/MDIs GIVEN.
--- NOTE | 2020-05-12 01:57 | NUR ---
PATIENT HAVING EPISODES OF DESAT TO 86%, FINGER PROBE CHANGED INCREASED FIO2 TO 95%, PATIENT SUCTIONED
--- NOTE | 2020-05-12 19:50 | NUR ---
PT PRONED AT 1400,RT AND FOUR RN FOR THE TURN, A 10MG PUSHOF VECURONIUM WAS GIVEN BEFORE THE TURN, THEN DR COATES ORDERED A VECURONIUM GTT AT 1MCG/KG/MIN
--- NOTE | 2020-05-13 00:13 | NUR ---
LATE CHARTING NOTE: 2335 PATIENT HAD INCREASING PEAK PRESSURES UPWARDS TO 75, LOW TIDAL VOLUMES IN PRONE POSITION, RN CALLED DR. PHILLIPS SENIOR SPEECH PATHOLOGIST AND OK TO PLACE PATIENT BACK IN SUPINE POSITION. BOTH RTs AND 4 RNs AT BEDSIDE, DR. LIU OUTSIDE ROOM. PATIENT RETURNED TO SUPINE POSITION WITHOUT INCIDENT AND NOW TOLERATING VENT PEAK PRESSURES AROUND 40 AND TIDAL VOLUMES AROUND 626. PATIENT SUCTIONED WITH LARGE AMOUNT OF SECRETIONS, THICK MUCUS.
--- NOTE | 2020-05-13 02:13 | NUR ---
AROUND 2300 IT WAS NOTICED THAT PT. WAS BUCKING THE VENT, PEAK PRESSURES WERE REACHING UP TO 75, BREATHS WERE STACKING. PT.S HEAD WAS REPOSITIONED AND TRACH SUCTIONED TO HELP IMPROVE CONDITION. PT HAD NENO'D DOWN IN THE 40'S, DOBHOFF WAS NOTICED TO HAVE BEEN PULLED OUT A LITTLE. IT WAS DECIDED TO REMOVE TUBE ALL TOGETHER TO HELP WITH IMPROVEMENT ON AIRWAY. PT. WAS OKAY FOR A LITTLE BIT BUT THE VENT STARTED ALARMING AGAIN. IT WAS DECIDED BY RT AND RN'S THAT PT. BE TURNED BACK ON BACK (NOT "DUE" UNTIL 0600). DR. PHILLIPS GAVE ORDER TO HAVE HER SUPINED. TURNED PT. BACK ON HER BACK PER PROTOCOL AND SAW IMMEDIATE IMPROVEMENT IN OVERALL CONDITION. PT. HAS BEEN DOING WELL SINCE WITH PEAK PRESSURES IN THE 40'S, HR 91, VO 145/79, O2 98%.
--- NOTE | 2020-05-13 17:54 | NUR ---
UNABLE TO FLUSH CURRENT DOBHOFF, REMOVED. NEW 12 FR. WEIGHTED FEEDING TUBE PLACED, AWARE. AWAITING KUB FOR PLACEMENT VERIFICATION. NO COMPLICATIONS, TOLERATED PROCEDURE WELL.
[2020-05-14 04:45] LABS: BASOPHIL 0.3 % (0-2); EOSINOPHIL 3.8 % (0-7); HGB 8.7 g/dl (12.5-16.0); LYMPHOCYTE 12.2 % (15-48); MCH 29.3 pg (25.0-31.0); MONOCYTE 9.4 % (0-12); MPV 9.8 fL (6.0-9.5); NEUTROPHIL 74.1 % (41-80); NRBC 0; PLT 260 K/uL (150-400); RBC 2.97 M/uL (4.20-5.40); RDW 15.2 % (11.5-14.0); WBC 6.3 K/uL (4.0-10.5)
[2020-05-14 04:57] LABS: BUN/CREAT RATIO (CALC) 51.9 RATIO; CREATININE 0.27 mg/dL (0.51-0.95); POTASSIUM 3.2 mmol/L (3.5-5.1)
--- NOTE | 2020-05-14 11:22 | NUR ---
1030 DR BAEZ REPLACED TRACH WITH #8 ASSISTED BY ANESTHESIA AND RESPIRATORY. NO DIFFICULTIES.
--- NOTE | 2020-05-14 13:21 | NUR ---
05/14/2020 [facility] was contacted for possible LTC. They will consider a patient with a FI02 at 55% and peg placement. A report was given to Dr. Pickard.
[2020-05-15 04:58] LABS: BASOPHIL 0.2 % (0-2); EOSINOPHIL 4.3 % (0-7); HCT 29.3 % (37.0-47.0); HGB 8.5 g/dl (12.5-16.0); MONOCYTE 10.4 % (0-12); NEUTROPHIL 69.8 % (41-80); NRBC 0; PLT 272 K/uL (150-400); RBC 2.93 M/uL (4.20-5.40); RDW 15.1 % (11.5-14.0); WBC 6.5 K/uL (4.0-10.5)
[2020-05-15 05:37] LABS: BUN/CREAT RATIO (CALC) 40.7 RATIO; CREATININE 0.27 mg/dL (0.51-0.95); POTASSIUM 3.5 mmol/L (3.5-5.1)
[2020-05-16 04:29] LABS: BASOPHIL 0.2 % (0-2); EOSINOPHIL 3.6 % (0-7); HCT 29.2 % (37.0-47.0); HGB 8.5 g/dl (12.5-16.0); LYMPHOCYTE 13.9 % (15-48); MCH 28.9 pg (25.0-31.0); MCHC 29.1 g/dL (32.0-36.0); MCV 99.3 fL (78.0-100.0); MONOCYTE 11.3 % (0-12); MPV 9.7 fL (6.0-9.5); NEUTROPHIL 70.7 % (41-80); NRBC 0; PLT 265 K/uL (150-400); RBC 2.94 M/uL (4.20-5.40); WBC 6.6 K/uL (4.0-10.5)
[2020-05-16 04:48] LABS: BUN/CREAT RATIO (CALC) 32.3 RATIO; CREATININE 0.31 mg/dL (0.51-0.95); POTASSIUM 3.5 mmol/L (3.5-5.1)
--- NOTE | 2020-05-17 03:11 | NUR ---
PATIENT HAS HAD DISCREPANCY IN MONITOR SAT WITH DIFFERENT SITES. PATIENT WAS 95% WITH EARLOBE, 82% WITH FINGER. INCREASED TO 80% FIO2 PER DR. PHILLIPS PER RN. PATIENT MAINTAINS POOR PERFUSION THROUGHOUT.
--- NOTE | 2020-05-17 08:52 | NUR ---
SATS DROPPED TO 70%,SUCTIONED INLINE AND ORALLY. TURNED FIO2 UP TO 100% TO LET HER RECOVER, THEN TURNED BACK DOWN TO 90% FIO2, SATS CAME UP TO 90 TO 91%. CALLED DR VEGA HE SAID TO TURN UP TO 100% FIO2,DESTINEE LANZA TURNED HER BACK TO 100% FIO2.
--- NOTE | 2020-05-18 10:36 | NUR ---
05/18/2020 Vent setting were relayed to [facility]. [facility] requested settings again on 05/21/20. They will consider taking with higher FI02 than 60% at previously stated if patient is stable. - Report was given to Dr. Pickard.
--- NOTE | 2020-05-18 17:58 | NUR ---
173- NOTIFIED DR. VEGA OF DIFFENCE IN ABP AND BP. BOTH ARE LOW BP 85/86 AND ABP 71/49 REZEROED AND LEVELED. DECREASED VERSED TO 18. PER DR. VEGA CONTINUE TO DECREASED VERSED 1ST.
[2020-05-19 05:59] LABS: BASOPHIL 0.2 % (0-2); EOSINOPHIL 2.9 % (0-7); HCT 27.7 % (37.0-47.0); LYMPHOCYTE 8.8 % (15-48); MCH 28.4 pg (25.0-31.0); MCHC 28.9 g/dL (32.0-36.0); MCV 98.2 fL (78.0-100.0); MONOCYTE 11.1 % (0-12); MPV 9.7 fL (6.0-9.5); NEUTROPHIL 76.4 % (41-80); NRBC 0.2; PLT 297 K/uL (150-400); RBC 2.82 M/uL (4.20-5.40); WBC 10.6 K/uL (4.0-10.5)
[2020-05-19 06:14] LABS: ALBUMIN 1.7 g/dL (3.4-5.0); BILIRUBIN - TOTAL 0.2 mg/dL (0.2-1.0); CREATININE 0.25 mg/dL (0.51-0.95); GLOBULIN (CALCULATION) 3.9 g/dL; POTASSIUM 4.3 mmol/L (3.5-5.1); TOTAL PROTEIN 5.6 g/dL (6.4-8.2)
[2020-05-21 04:17] LABS: BASOPHIL 0.2 % (0-2); EOSINOPHIL 3.5 % (0-7); HCT 27.4 % (37.0-47.0); HGB 7.9 g/dl (12.5-16.0); LYMPHOCYTE 7.9 % (15-48); MCH 27.9 pg (25.0-31.0); MCHC 28.8 g/dL (32.0-36.0); MCV 96.8 fL (78.0-100.0); MONOCYTE 10.5 % (0-12); MPV 9.3 fL (6.0-9.5); NEUTROPHIL 76.9 % (41-80); NRBC 0.6; PLT 360 K/uL (150-400); RBC 2.83 M/uL (4.20-5.40); WBC 10.2 K/uL (4.0-10.5)
[2020-05-21 04:34] LABS: IRON % SATURATION 9.7 %SAT (20-50)
[2020-05-21 04:59] LABS: ALBUMIN 1.6 g/dL (3.4-5.0); BILIRUBIN - TOTAL 0.2 mg/dL (0.2-1.0); BUN/CREAT RATIO (CALC) 52.2 RATIO; CREATININE 0.23 mg/dL (0.51-0.95); FOLIC ACID (SERUM) 9.9 ng/mL (8.6-58.9); GLOBULIN (CALCULATION) 4.5 g/dL; POTASSIUM 3.8 mmol/L (3.5-5.1); TOTAL PROTEIN 6.1 g/dL (6.4-8.2)
--- NOTE | 2020-05-21 06:16 | NUR ---
ABOUT 0530 PT. ASSESSED BY RT AND HOSPICE CLINICAL MANAGER. PT. BP 185/65, O2 SAT 86 ON VENT: A/C, TV 620, RATE 25, FIO2 90%, PEEP 10, ORAL TEMP 103.3. PT. SHOWING ABDOMINAL BREATHING, SKIN ON ARMS AND LEGS HAS [place] SHAPED INDENTIONS. HOSPICE CLINICAL MANAGER ORDERED KG HUGGER AND OFIRMEV 100ML. WILL CONTINUE TO MONITOR PT. ER, RN
[2020-05-21 10:54] LABS: BILIRUBIN NEGATIVE (NEGATIVE); BLOOD 2+ Ery/uL (NEGATIVE); CLARITY CLEAR (CLEAR); COLOR YELLOW (YELLOW); GLUCOSE (U) NORMAL (NORMAL); LEUKOCYTES TRACE Leu/uL (NEGATIVE); NITRITE POSITIVE (NEGATIVE); PROTEIN NEGATIVE (NEGATIVE); SPECIFIC GRAVITY 1.015 (1.001-1.030)
[2020-05-21 11:03] LABS: URINARY WBC 20-50
[2020-05-21 11:04] LABS: BACTERIA 3+; SQUAMOUS EPITHELIAL CELLS RARE
--- NOTE | 2020-05-21 12:30 | NUR ---
PATIENT NOTED TO HAVE DESATED TO 79%. AND RT AT BEDSIDE. PATIENT BAGGED WITH PEEP VALVE IN USE ON 100% O2. LAVAGED AND SUCTIONED. REPOSITIONED TO LEFT SIDE. PEEP INCREASED TO 18, RATE INCREASED TO 28, PER MD. PATIENT SLOWLY RETURNED TO SAT OF 95%. WILL CONTINUE TO MONITOR
[2020-05-22 05:34] LABS: BASOPHIL 0.2 % (0-2); EOSINOPHIL 0.1 % (0-7); HCT 26.1 % (37.0-47.0); HGB 7.6 g/dl (12.5-16.0); LYMPHOCYTE 4.2 % (15-48); MCH 28.3 pg (25.0-31.0); MCHC 29.1 g/dL (32.0-36.0); MONOCYTE 10.2 % (0-12); MPV 9.5 fL (6.0-9.5); NEUTROPHIL 84.2 % (41-80); NRBC 0.3; PLT 366 K/uL (150-400); RBC 2.69 M/uL (4.20-5.40); RDW 15.2 % (11.5-14.0); WBC 18.9 K/uL (4.0-10.5)
[2020-05-22 05:46] LABS: ALBUMIN 1.5 g/dL (3.4-5.0); ALKALINE PHOSHATASE 175 U/L (46-116); ALT 40 U/L (14-59); AST 25 U/L (15-37); BILIRUBIN - TOTAL 0.2 mg/dL (0.2-1.0); BUN 15 mg/dL (7-18); BUN/CREAT RATIO (CALC) 65.2 RATIO; C-REACTIVE PROTEIN >18.00 mg/dL (<=0.90); CHLORIDE 101 mmol/L (98-107); CO2 (BICARBONATE) 35 mmol/L (21-32); CREATININE 0.23 mg/dL (0.51-0.95); GLOBULIN (CALCULATION) 4.9 g/dL; GLUCOSE 140 mg/dL (74-106); POTASSIUM 4.2 mmol/L (3.5-5.1); TOTAL PROTEIN 6.4 g/dL (6.4-8.2)
--- NOTE | 2020-05-22 13:45 | NUR ---
05/22/20 1215 ORDER RECEIVED FOR MIDLINE INSERTION. PT PREPPED AND DRAPED IN SRERILE FASHION. THE PT'S LEFT UPPER ARM BASILIC VEIN WAS VISUALIZED USING THE SITE RITE 6 ULTRA SOUND. A 21 GA NEEDLE WAS USED. UMABLE TO GUIDE THREAD THE GUIDE THE WIRE. A SECOND ATTEMPT WAS MADE AGAIN THE WIRE WOULD NOT THREAD. ANOTHER STERILE WIRE WAS OBTAINED AND ATTEMPTED AGAIN. A 21GA NEEDLE WAS USED. GOOD BLOOD RETURN WAS NOTED. THE GUIDE WIRE THREADED EASILY. THE NEEDLE WAS REMOVED AND THE MIDLINE CATHETHER WAS PLACED OVER THE WIRE. THE WIRE AND SHEATH WERE REMOVED. GOOD BLOOD RETURN WAS NOTED. A CONNECTOR WAS FLUSHED AND PLACED OVER THE END OF THE CATHETER. A STAT LOCK WAS PLACED ON THE CATHETER A STERILE TEGADERM WAS PLACED OVER THE MIDLINE CATHETHER. PT TOLERATED WELL. PT HAS A 20GA 10CM POWERGLIDE MIDLINE CATHETHER IN LEFT UPPER ARM. GOOD FOR 29 DAYS. THIS IS NOT A CENTRAL LINE. REPORT TO A [facility] ICU.
--- NOTE | 2020-05-22 17:30 | NUR ---
AT BEDSIDE. PATIENT DESATTING TO 81% RR 36-40. HR IN 110'S. HYPERTENSIVE. PEEP INCREASED TO 16. PATIENT LAVAGED, SUCTIONED AND REPOSITIONED. SEDATION AND ANALGESIC INCREASED, SEE CHARTING. PATIENT RECOVERED TO O2 SAT >94%. WILL UPDATE FAMILY AND CONTINUE TO MONITOR.
[2020-05-23 04:55] LABS: BASOPHIL 0.1 % (0-2); EOSINOPHIL 0 % (0-7); HCT 25.4 % (37.0-47.0); HGB 7.2 g/dl (12.5-16.0); LYMPHOCYTE 5.8 % (15-48); MCH 28.2 pg (25.0-31.0); MCHC 28.3 g/dL (32.0-36.0); MCV 99.6 fL (78.0-100.0); MONOCYTE 6.3 % (0-12); MPV 9.6 fL (6.0-9.5); NEUTROPHIL 85.9 % (41-80); NRBC 0.4; PLT 353 K/uL (150-400); RBC 2.55 M/uL (4.20-5.40); RDW 15.4 % (11.5-14.0); WBC 14.4 K/uL (4.0-10.5)
[2020-05-23 05:09] LABS: BUN 13 mg/dL (7-18); BUN/CREAT RATIO (CALC) 54.2 RATIO; C-REACTIVE PROTEIN >18.00 mg/dL (<=0.90); CHLORIDE 100 mmol/L (98-107); CO2 (BICARBONATE) 38 mmol/L (21-32); CREATININE 0.24 mg/dL (0.51-0.95); GLUCOSE 135 mg/dL (74-106); POTASSIUM 4.2 mmol/L (3.5-5.1)
--- NOTE | 2020-05-23 11:39 | NUR ---
PATIENTS DAUGHTER VINNY AT BEDSIDE, DISCUSSED PATIENTS STAUS AND PLAN OF CARE WITH . ALL PATIENTS PERSONAL BELONGINGS, EXCLUDING OXYGEN TANK, GIVEN TO VINNY AT THIS TIME.
--- NOTE | 2020-05-23 16:22 | NUR ---
PATIENT DESATED TO 80%. RR 37, CONTINUOUS PEAKED PRESSURES, POOR VOLUMES ON VENT, BP 208/106. AND RT CALLED TO BEDSIDE. PATIENT REPOSITIONED, SUCTIONED, BREATHING TREATMENT PER RT, SEDATION INCREASED. SPO2 RETRUNED TO 90-96%. WILL CONTINUE TO MONITOR
[2020-05-23 18:11] LABS: INR 1.12 (0.9-1.2); PROTHROMBIN TIME 13.7 SECONDS (11.4-13.6)
--- NOTE | 2020-05-24 17:40 | NUR ---
1430 DESTINEE LANZA AND I, CHANGED THE INNER CANNULA OF HER TRACH WITH THE DISPOSABLE ONE, SHE CONTINUED TO DESAT TO 77%, SO WE CHANGED THE INNER CANNULA BACK TO THE ONE THAT IT CAME WITH FROM A NEW TRACH KIT.SATS HAVE BEEN IN THE UPPER 90% SINCE THE CHANGE BACK.
[2020-05-25 18:17] LABS: BASOPHIL 0.3 % (0-2); EOSINOPHIL 1.2 % (0-7); HCT 28.4 % (37.0-47.0); LYMPHOCYTE 6.3 % (15-48); MCH 27.7 pg (25.0-31.0); MCHC 28.2 g/dL (32.0-36.0); MCV 98.3 fL (78.0-100.0); MONOCYTE 7.8 % (0-12); MPV 9.3 fL (6.0-9.5); NEUTROPHIL 79.8 % (41-80); NRBC 1.2; PLT 442 K/uL (150-400); RBC 2.89 M/uL (4.20-5.40); WBC 10.6 K/uL (4.0-10.5)
[2020-05-25 18:28] LABS: CREATININE 0.25 mg/dL (0.51-0.95); POTASSIUM 4.2 mmol/L (3.5-5.1)
--- NOTE | 2020-05-25 20:28 | NUR ---
PATIENT DESAT TO 66%. PATIENT ON 100%, +14, PATIENT WAS SUCTIONED WITH SMALL AMOUNT OF THIN RED BLOOD. FINGER PROBE CHANGED WITH GOOD PLETH. XOCHILT OG APRN NOTIFIED BY ANNA RODAS, INCREASE TO +16 PEEP AND THEN 18 PEEP PER NAILA. PATINET GRADUALLY INCREASED TO +18 PEEP, SAT GRADUALLY HAS INCREASED TO 87%
[2020-05-28 04:42] LABS: BASOPHIL 0.1 % (0-2); EOSINOPHIL 2.1 % (0-7); HGB 7.2 g/dl (12.5-16.0); LYMPHOCYTE 12.9 % (15-48); MCH 27.6 pg (25.0-31.0); MCHC 26.7 g/dL (32.0-36.0); MCV 103.4 fL (78.0-100.0); MPV 9.3 fL (6.0-9.5); NEUTROPHIL 72.5 % (41-80); NRBC 1.6; PLT 352 K/uL (150-400); RBC 2.61 M/uL (4.20-5.40); RDW 16.7 % (11.5-14.0); WBC 7.1 K/uL (4.0-10.5)
[2020-05-28 05:21] LABS: BUN/CREAT RATIO (CALC) 69.2 RATIO; CREATININE 0.26 mg/dL (0.51-0.95); POTASSIUM 4.6 mmol/L (3.5-5.1)
--- NOTE | 2020-05-28 14:24 | NUR ---
05/28/2020 Barbra rico [place] / [facility] reports an ICU bed at [facility] may be available on 05/29/2020. Updated information was faxed. Report given to ICU.
[2020-05-30 05:40] LABS: BASOPHIL 0.2 % (0-2); EOSINOPHIL 1.5 % (0-7); HCT 26.4 % (37.0-47.0); HGB 7.4 g/dl (12.5-16.0); LYMPHOCYTE 11.5 % (15-48); MCH 28.2 pg (25.0-31.0); MCV 100.8 fL (78.0-100.0); MONOCYTE 7.6 % (0-12); MPV 9.8 fL (6.0-9.5); NEUTROPHIL 78.3 % (41-80); NRBC 0.3; PLT 376 K/uL (150-400); RBC 2.62 M/uL (4.20-5.40); RDW 17.7 % (11.5-14.0); WBC 8.7 K/uL (4.0-10.5)
[2020-05-30 07:06] LABS: BUN/CREAT RATIO (CALC) 73.9 RATIO; CREATININE 0.23 mg/dL (0.51-0.95); POTASSIUM 4.3 mmol/L (3.5-5.1)
--- NOTE | 2020-05-30 17:31 | NUR ---
APROXIMATELY 1545 PATIENT DESATED TO 87%, SUCTIONED AND RESPOSITIONED. CONTINUED TO DESAT TO 80%. RT AND MD CALLED TO BEDSIDE. INAHELRS PROVIDED, IN LINE SUCTIONED, REPOSITINED, FIO2 INCREASED, SEDATION INCREASED. PATIENT RETURNED TO SAT OF 93% WITH PEAK PRESSURES 60-65. PEEP DECREASED TO 15, FIO2 AT 85% PER 'S REQUEST. PATIENT STABLE AT THIS TIME WITH SPO2 92%.
--- NOTE | 2020-05-31 20:19 | NUR ---
1730-PT DESAT 89%-91% ON CURRENT VENT SETTINGS OF AC 33, TV 550, FI02 85%, PEEP 15. DR VEGA NOTIFIED-ORDERED TO INCREASE FI02 TO 90%. WILL CONTINUE TO MONITOR. 174-DR VEGA WITH DAUGHTER OUTSIDE OF PATIENT ROOM. DAUGHTERS UPDATED ON PTS CONDITION.
[2020-06-02 05:22] LABS: BASOPHIL 0.2 % (0-2); EOSINOPHIL 1.4 % (0-7); HCT 28.8 % (37.0-47.0); HGB 8.1 g/dl (12.5-16.0); LYMPHOCYTE 12.7 % (15-48); MCH 28.4 pg (25.0-31.0); MCHC 28.1 g/dL (32.0-36.0); MCV 101.1 fL (78.0-100.0); MONOCYTE 9.2 % (0-12); MPV 9.4 fL (6.0-9.5); NRBC 0; PLT 345 K/uL (150-400); RBC 2.85 M/uL (4.20-5.40); RDW 18.5 % (11.5-14.0); WBC 8.9 K/uL (4.0-10.5)
[2020-06-02 05:36] LABS: BUN/CREAT RATIO (CALC) 91.3 RATIO; CREATININE 0.23 mg/dL (0.51-0.95); POTASSIUM 4.2 mmol/L (3.5-5.1)
[2020-06-04 06:11] LABS: BASOPHIL 0.4 % (0-2); EOSINOPHIL 2.3 % (0-7); HCT 29.4 % (37.0-47.0); HGB 8.2 g/dl (12.5-16.0); LYMPHOCYTE 15.3 % (15-48); MCH 28.3 pg (25.0-31.0); MCHC 27.9 g/dL (32.0-36.0); MCV 101.4 fL (78.0-100.0); MONOCYTE 11.2 % (0-12); MPV 9.7 fL (6.0-9.5); NEUTROPHIL 70.3 % (41-80); NRBC 0; PLT 302 K/uL (150-400); RDW 18.4 % (11.5-14.0); WBC 7.3 K/uL (4.0-10.5)
[2020-06-04 06:58] LABS: CREATININE 0.21 mg/dL (0.51-0.95); POTASSIUM 3.6 mmol/L (3.5-5.1)
--- NOTE | 2020-06-04 14:13 | NUR ---
PATIENT DESATED TO 81%. REPOSITIONED TO RIGHT SIDE, BACK PERCUSSED, ADDITIONAL MDI PROVIDED BY MARIAMA LANZA. FIO2 INCREASED TO 100% TEMPORARILY. INLINE SUCTIONED. PATIENT RETURNED TO SPO2 91-92%, CURRENT FIO2 80%. AT BEDSIDE.
[2020-06-05 18:49] LABS: BILIRUBIN NEGATIVE (NEGATIVE); BLOOD 3+ Ery/uL (NEGATIVE); CLARITY CLEAR (CLEAR); COLOR YELLOW (YELLOW); GLUCOSE (U) NORMAL (NORMAL); LEUKOCYTES NEGATIVE Leu/uL (NEGATIVE); NITRITE NEGATIVE (NEGATIVE); PROTEIN TRACE (LOW) mg/dL (NEGATIVE); SPECIFIC GRAVITY 1.025 (1.001-1.030)
[2020-06-05 19:19] LABS: BACTERIA TRACE; CALCIUM OXALATE CRYSTALS TRACE; URINARY RBC TNTC
[2020-06-06 04:08] LABS: BASOPHIL 0.3 % (0-2); EOSINOPHIL 1.9 % (0-7); HCT 30.2 % (37.0-47.0); HGB 8.3 g/dl (12.5-16.0); MCH 28.3 pg (25.0-31.0); MCHC 27.5 g/dL (32.0-36.0); MCV 103.1 fL (78.0-100.0); MONOCYTE 10.8 % (0-12); MPV 10.2 fL (6.0-9.5); NEUTROPHIL 74.8 % (41-80); NRBC 0; PLT 296 K/uL (150-400); RBC 2.93 M/uL (4.20-5.40); RDW 17.7 % (11.5-14.0); WBC 8.8 K/uL (4.0-10.5)
[2020-06-06 04:22] LABS: CREATININE 0.21 mg/dL (0.51-0.95)
--- NOTE | 2020-06-06 15:42 | NUR ---
Telephone Conversation with Margot Miranda's Daughters, Vibha, Mer and Nichole to determine who is to be the decision maker for . Ruben. Present for the telephone call on speaker phone were JACQUELIN iTrado and JACQUELIN Roche These calls occurred on 06/05/2020 beginning at 3:15 p.m. with the last call made at 3:25 p.m. First telephone call was to Vibha. Michael explained that in the [facility] there is a list of legal family representatives and the majority decision of the children determines the decisions to be made for a family members care. Michael advised that the hospital is required to call all three children to get their verbal agreement on who is to be the decision maker for Ms. Miranda. Per Vibha, she stated that she is the primary decision maker for . Ruben. She stated that it was not necessary to contact her sisters as they were working. She reported that she will speak with her sisters regarding any information about her mother and they will make a decision together. Michael advised that to abide by the law we have to speak with her sisters regarding their opportunity to be a decision maker. Michael also advised that a family meeting will be called at some point so that Ms. Miranda's medical condition can be explained to the family. Second phone call was to Mer. Michael advised her that in the [facility] there is a list of decision makers for a family member and it is the responsibility of the hospital to determine who is to be the decision maker for . Ruben. Mer stated to Michael that she will defer to Vibha as the decision maker. Michael explained to Mer that as a daughter she has the right to be a decision maker for her mother. Again, Mer deferred the decision making to Vibha. Michael advised Mer of a family meeting being planned and that Vibha could invite her to the meeting. Third phone call was to Nichole. Michael again, explained the [place] law regarding legal decision makers for a family member. She advised that she had spoken with Vibha and Mer. Nichole asked Michael "what did they say?" Michael advised that Vibha had said that she was the decision maker and Mer had deferred the decision making to Vibha. Nichole stated that she was deferring the decision making regarding her mother to Vibha. Michael explained that as a daughter she has the right to be a part of the decision making process. Again, Nichole stated that she was deferring the decision making to Vibha. Michael also advised her of a family meeting being planned and that Vibha could invite her to the meeting. Signed: [place]: JACQUELIN Tirado CSW ORIGINAL SIGNED STATEMENT IS IN THE CHART.
[2020-06-07 04:26] LABS: BASOPHIL 0.1 % (0-2); EOSINOPHIL 0.5 % (0-7); HCT 30.8 % (37.0-47.0); HGB 8.6 g/dl (12.5-16.0); MCH 28.7 pg (25.0-31.0); MCHC 27.9 g/dL (32.0-36.0); MCV 102.7 fL (78.0-100.0); MPV 10.2 fL (6.0-9.5); NEUTROPHIL 80.1 % (41-80); NRBC 0; PLT 271 K/uL (150-400); RDW 17.6 % (11.5-14.0); WBC 9.4 K/uL (4.0-10.5)
[2020-06-07 04:42] LABS: BUN/CREAT RATIO (CALC) 109.5 RATIO; CREATININE 0.21 mg/dL (0.51-0.95); POTASSIUM 3.9 mmol/L (3.5-5.1)
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
--- NOTE | 2020-06-07 17:46 | NUR ---
09 PATIENT O2 SAT QUICKLY DROPPED TO 69% AND HR 40, AFTER SUCTION HR 35 AND O2 SAT 75 AND SLOWLY CONTINUED TO RISE TO 98%.DR COATES NOTIFIED AND HEART MONITOR STRIP PLACED ON THE CHART AND DOCUMENTED. 1748 STOMACH DISTENDED/HARD, DR COATES SUCTIONED AND THEN ORDERED A KUB TO FURTHER INVESTIGATE.
[2020-06-08 05:14] LABS: CREATININE 0.25 mg/dL (0.51-0.95); POTASSIUM 3.7 mmol/L (3.5-5.1)
[2020-06-11 04:02] LABS: BASOPHIL 0 % (0-2); EOSINOPHIL 0 % (0-7); HCT 32.5 % (37.0-47.0); HGB 9.1 g/dl (12.5-16.0); LYMPHOCYTE 8.8 % (15-48); MCH 27.8 pg (25.0-31.0); MCV 99.4 fL (78.0-100.0); MONOCYTE 8.5 % (0-12); MPV 10.1 fL (6.0-9.5); NEUTROPHIL 82.5 % (41-80); NRBC 0; PLT 292 K/uL (150-400); RBC 3.27 M/uL (4.20-5.40); RDW 17.8 % (11.5-14.0); WBC 5.7 K/uL (4.0-10.5)
[2020-06-11 04:26] LABS: CREATININE 0.3 mg/dL (0.51-0.95); POTASSIUM 2.9 mmol/L (3.5-5.1)
[2020-06-12 17:24] LABS: BILIRUBIN NEGATIVE (NEGATIVE); BLOOD 2+ Ery/uL (NEGATIVE); COLOR YELLOW (YELLOW); GLUCOSE (U) NORMAL (NORMAL); LEUKOCYTES 1+ Leu/uL (NEGATIVE); NITRITE NEGATIVE (NEGATIVE); PROTEIN NEGATIVE (NEGATIVE); SPECIFIC GRAVITY 1.015 (1.001-1.030); UROBILINOGEN 0.2 mg/dL (0.2-1.0); pH 6.5 (5.0-9.0)
--- NOTE | 2020-06-12 17:32 | NUR ---
PT. SNELL LEAKING LARGE AMOUNTS OF URINE FOR MULTIPLE DAYS, DR. VEGA NOTIFIED, SNELL REPLACED WITH NEW PRODUCT BRAND. STERIAL TECHNIC USED AND URINE RETURN.
[2020-06-12 17:52] LABS: CLARITY SLIGHTLY HAZY (CLEAR)
[2020-06-13 04:35] LABS: BASOPHIL 0.1 % (0-2); EOSINOPHIL 0.1 % (0-7); HCT 35.5 % (37.0-47.0); HGB 9.6 g/dl (12.5-16.0); LYMPHOCYTE 8.9 % (15-48); MCH 27.8 pg (25.0-31.0); MCV 102.9 fL (78.0-100.0); MONOCYTE 10.6 % (0-12); MPV 10.1 fL (6.0-9.5); NEUTROPHIL 79.9 % (41-80); NRBC 0; PLT 291 K/uL (150-400); RBC 3.45 M/uL (4.20-5.40); WBC 7.4 K/uL (4.0-10.5)
[2020-06-13 05:00] LABS: BUN 27 mg/dL (7-18); BUN/CREAT RATIO (CALC) 84.4 RATIO; CHLORIDE 104 mmol/L (98-107); CREATININE 0.32 mg/dL (0.51-0.95); GLUCOSE 113 mg/dL (74-106); POTASSIUM 4.1 mmol/L (3.5-5.1)
[2020-06-13 05:01] LABS: CO2 (BICARBONATE) > 45 mmol/L (21-32)
--- NOTE | 2020-06-14 19:53 | NUR ---
PATIENT VENT ALARM O2 SENSOR/ANALYZER. ALL MEASURES LOOKED AT BUT VENT WAS CHANGED OUT. RN BAGGED PATIENT WITH AMBU BAG/PEEP VALVE AND PATIENT MAINTAINED SAT 90-91% THROUGH RT CHANGING VENT. PATIENT PUT BACK ON SIMV SETTINGS, PATIENT SLIGHTLY DESAT TO 85% BUT NOW BACK TO 91%.
[2020-06-16 05:21] LABS: BASOPHIL 0.1 % (0-2); EOSINOPHIL 1.1 % (0-7); HCT 39.8 % (37.0-47.0); LYMPHOCYTE 4.1 % (15-48); MCH 27.7 pg (25.0-31.0); MCHC 27.6 g/dL (32.0-36.0); MCV 100.3 fL (78.0-100.0); MONOCYTE 8.9 % (0-12); MPV 9.8 fL (6.0-9.5); NEUTROPHIL 85.3 % (41-80); NRBC 0; PLT 308 K/uL (150-400); RBC 3.97 M/uL (4.20-5.40); RDW 17.7 % (11.5-14.0); WBC 8.1 K/uL (4.0-10.5)
[2020-06-16 05:51] LABS: BUN 40 mg/dL (7-18); CHLORIDE 97 mmol/L (98-107); CREATININE 0.32 mg/dL (0.51-0.95); GLUCOSE 114 mg/dL (74-106); POTASSIUM 4.1 mmol/L (3.5-5.1)
[2020-06-16 05:55] LABS: CO2 (BICARBONATE) > 45 mmol/L (21-32)
[2020-06-18 05:15] LABS: BASOPHIL 0 % (0-2); EOSINOPHIL 0 % (0-7); HCT 34.4 % (37.0-47.0); HGB 9.5 g/dl (12.5-16.0); LYMPHOCYTE 6.5 % (15-48); MCH 27.8 pg (25.0-31.0); MCHC 27.6 g/dL (32.0-36.0); MCV 100.6 fL (78.0-100.0); MONOCYTE 8.7 % (0-12); MPV 10.4 fL (6.0-9.5); NEUTROPHIL 84.3 % (41-80); NRBC 0; PLT 218 K/uL (150-400); RBC 3.42 M/uL (4.20-5.40); RDW 17.6 % (11.5-14.0); WBC 6.5 K/uL (4.0-10.5)
[2020-06-18 05:29] LABS: BUN/CREAT RATIO (CALC) 122.6 RATIO; CREATININE 0.31 mg/dL (0.51-0.95); POTASSIUM 3.9 mmol/L (3.5-5.1)
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
[2020-06-19 11:33] LABS: BILIRUBIN NEGATIVE (NEGATIVE); BLOOD NEGATIVE Ery/uL (NEGATIVE); CLARITY CLEAR (CLEAR); COLOR YELLOW (YELLOW); GLUCOSE (U) NORMAL (NORMAL); LEUKOCYTES NEGATIVE Leu/uL (NEGATIVE); NITRITE NEGATIVE (NEGATIVE); PROTEIN TRACE (LOW) mg/dL (NEGATIVE); pH 5.5 (5.0-9.0)
[2020-06-19 11:39] LABS: BACTERIA 1+; URINARY RBC RARE; URINARY WBC RARE
[2020-06-20 04:16] LABS: BASOPHIL 0.1 % (0-2); EOSINOPHIL 0 % (0-7); HCT 34.6 % (37.0-47.0); HGB 9.9 g/dl (12.5-16.0); LYMPHOCYTE 6.2 % (15-48); MCH 28.4 pg (25.0-31.0); MCHC 28.6 g/dL (32.0-36.0); MCV 99.1 fL (78.0-100.0); MONOCYTE 10.3 % (0-12); MPV 10.5 fL (6.0-9.5); NEUTROPHIL 82.8 % (41-80); NRBC 0; PLT 191 K/uL (150-400); RBC 3.49 M/uL (4.20-5.40); RDW 17.2 % (11.5-14.0); WBC 7.8 K/uL (4.0-10.5)
[2020-06-20 04:25] LABS: INR 1.15 (0.9-1.2); PTT 28.4 SECONDS (22.2-34.7)
[2020-06-20 05:01] LABS: BILIRUBIN - TOTAL 0.5 mg/dL (0.2-1.0); CREATININE 0.32 mg/dL (0.51-0.95); POTASSIUM 3.7 mmol/L (3.5-5.1)
[2020-06-20 05:02] LABS: MAGNESIUM 2.1 mg/dL (1.8-2.4); PHOSPHORUS 3.4 mg/dL (2.6-4.7)
--- NOTE | 2020-06-23 20:51 | NUR ---
PATIENT ON SIMV, EXVT SLIGHTLY LOWER SINCE BEGINNING OF SHIFT AND PER PATIENT VENT WAVEFORMS NOT FULLY EXHALING. PEAK FLOW ADJUSTED TO 60, SENSITIVITY DECREASED AND PRESSURE SUPPORT INCREASED TO 8. TRACH SLIGHTLY POSITIONAL. PATIENT SUCTIONED, WITH VERY SCANT SECRETIONS. SAT CURRENTLY 87% ON 100% AND +18 PEEP
--- NOTE | 2020-06-27 01:19 | NUR ---
PATIENT HAD FREQUENT LOW SPONTANEOUS VOLUME ALARM WITH EXVT AROUND 180s. AIR CHECKED IN CUFFK, RR 40. PATIENT SWITCEHD BACK TO AC AND PATIENT IMPROVED RR BACK TO 30 AND EXVT AROUND 500. BRADY OG NOTIFIED OF VENT CHANGES PATIENT HR 84 SAT 98% CONTINUE TO MONITOR PATIENT
--- NOTE | 2020-06-27 17:15 | NUR ---
NG TUBE CAME UNTAPED AND CAME OUT APPROXIMATELY 4 INCHES. UNABLE TO REINSERT. ATTEMPTED TO REINSERT WITHOUT SUCCESS. DR. CABALLERO NOTIFIED ORDERS TO LEAVE NG OUT RECEIVEDS
--- NOTE | 2020-06-28 06:29 | NUR ---
PATIENT TIME OF 0515. SKIN CARVER AND RN AT BEDSIDE. RT REMOVED PATIENT FROM VENTILATOR AND TRACH SUCITONED
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
== END 2020-06-28 08:25 | disposition expired | DRG 4 ==
LOC: FER 10:27 → FICU 11:58
PROVIDERS: Allergy & Immunology; Allergy & Immunology Allergy; Emergency Medicine; Internal Medicine; ADMIT Internal Medicine
PROC: 8E0ZXY6 Isolation (ICD-10-PCS; principal; 2020-04-02)
PROC: XW033E5 Introduction of Remdesivir Anti-infective into Peripheral Vein, Percutaneous Approach, New Technology Group 5 (ICD-10-PCS; 2020-04-02)
PROC: 3E0333Z Introduction of Anti-inflammatory into Peripheral Vein, Percutaneous Approach (ICD-10-PCS; 2020-04-02)
PROC: 06HY33Z Insertion of Infusion Device into Lower Vein, Percutaneous Approach (ICD-10-PCS; 2020-04-10)
PROC: 5A1955Z Respiratory Ventilation, Greater than 96 Consecutive Hours (ICD-10-PCS; 2020-04-10)
PROC: 0BH17EZ Insertion of Endotracheal Airway into Trachea, Via Natural or Artificial Opening (ICD-10-PCS; 2020-04-10)
PROC: 03HY32Z Insertion of Monitoring Device into Upper Artery, Percutaneous Approach (ICD-10-PCS; 2020-04-11)
PROC: 3E0336Z Introduction of Nutritional Substance into Peripheral Vein, Percutaneous Approach (ICD-10-PCS; 2020-04-12)
PROC: 0B113F4 Bypass Trachea to Cutaneous with Tracheostomy Device, Percutaneous Approach (ICD-10-PCS; 2020-05-02)
PROC: 05HY33Z Insertion of Infusion Device into Upper Vein, Percutaneous Approach (ICD-10-PCS; 2020-05-22)
PROC: 0B21XFZ Change Tracheostomy Device in Trachea, External Approach (ICD-10-PCS; 2020-05-30)
DX: U07.1 COVID-19 (principal); J12.89 Other viral pneumonia; J15.0 Pneumonia due to Klebsiella pneumoniae; A41.9 Sepsis, unspecified organism; J80 Acute respiratory distress syndrome; B37.1 Pulmonary candidiasis; R65.21 Severe sepsis with septic shock; C90.00 Multiple myeloma not having achieved remission; J90 Pleural effusion, not elsewhere classified; E87.1 Hypo-osmolality and hyponatremia; J95.851 Ventilator associated pneumonia; R04.2 Hemoptysis; Z99.11 Dependence on respirator [ventilator] status; B37.49 Other urogenital candidiasis; D64.9 Anemia, unspecified; M81.0 Age-related osteoporosis without current pathological fracture; Z85.3 Personal history of malignant neoplasm of breast; D86.0 Sarcoidosis of lung; G47.30 Sleep apnea, unspecified; D70.9 Neutropenia, unspecified; Z78.1 Physical restraint status; R60.1 Generalized edema; E87.6 Hypokalemia; Y95 Nosocomial condition; R53.81 Other malaise; K59.00 Constipation, unspecified; Z66 Do not resuscitate; M62.84 Sarcopenia; I27.20 Pulmonary hypertension, unspecified; Z79.899 Other long term (current) drug therapy
CPT/HCPCS: 31500; 36415; 36430; 36600; 71045; 74018; 80048; 80053; 80202; 81001; 81003; 82550; 82607; 82728; 82746; 82803; 82962; 83540; 83550; 83605; 83615; 83735; 83880; 84100; 84134; 84145; 84478; 84484; 85025; 85379; 85610; 85730; 86140; 86850; 86900; 86901; 87040; 87070; 87076; 87077; 87088; 87186; 87205; 92950; 93005; 94002; 94640; 94664; 94770; C1751; C9113; C9399; J0131; J0360; J0696; J1100; J1335; J1450; J1642; J1650; J1940; J1956; J2020; J2185; J2248; J2250; J2543; J2704; J2916; J3010; J3370; J7030; J7040; J7050; J7060; J7070; J7120; J8540; P9017; Q0163; U0002